=== PATIENT | male | born 1950 | race Caucasian/White ===

== ENCOUNTER → 2017-12-29 08:59 | Outpatient (CLI) | payer MEDICARE, SELFPAY ==
[2017-12-29 10:06] LABS: Hematocrit 45.7 % (40-54); Hemoglobin 14.9 g/dl (13.0-16.5); Mean Corp Hgb Conc 32.6 g/gl (32-36); Mean Corpuscular Hgb 30.8 pg (27.0-32.0); Mean Corpuscular Volume 94.6 fL (80-94); Mean Platelet Vol. 10.3 fl (6.2-12.0); Platelet Count 174 K/mm3 (150-450); RBC Distribution Width CV 12.9 % (11.6-14.6); RBC Distribution Width SD 44.6 fl (35.1-43.9); Red Blood Count 4.83 M/mm3 (4.6-6.2); Scan Indicated on CBC? Y/N NO; White Blood Count 7.2 K/mm3 (4.4-11.0)
[2017-12-29 10:35] LABS: ALB/GLOB Ratio 0.7 RATIO (0.9-2.4); AST(SGOT) 21 U/L (15-37); Alanine Aminotransfer ALT/SGPT 24 U/L (16-61); Albumin, Serum 3.7 g/dL (3.2-5.0); Alkaline Phosphatase 91 U/L (45-117); Anion Gap 6 (5-15); BUN 11 mg/dL (7-18); BUN/Creat Ratio 13.3 RATIO (10-20); Calcium,Total 9.9 mg/dL (8.5-10.1); Chloride 92 mmol/L (98-107); Cholesterol 187 mg/dL (200); Creatinine, Serum 0.82 mg/dL (0.70-1.30); EST Glomerular Filtration Rate 99 mL/min (>60); Est Glom Filt Rate - Afr Amer 120 mL/min (>60); Globulin 5.3 g/dL (2.2-4.2); Glucose 175 mg/dL (74-106); High Density Lipoprotein 71 mg/dL; Potassium 4.3 mmol/L (3.5-5.1); Sodium Level 138 mmol/L (136-145); Thyroid Stim Hormone (TSH) 1.16 uIU/mL (0.358-3.74); Triglycerides 109 mg/dL; Very Low Density Lipoprotein 22 mg/dL (5-40)
== END ==
PROVIDERS: Family Provider Family Medicine; PCP Family Medicine; Visit Provider Family Medicine
DX: E11.9 Type 2 diabetes mellitus without complications (principal); J44.9 Chronic obstructive pulmonary disease, unspecified
CPT/HCPCS: 36415; 80053; 80061; 84403; 84443; 85027

== ENCOUNTER → 2018-06-01 07:26 | Outpatient (CLI) | payer MEDICARE, SELFPAY ==
[2018-03-12 06:39] VITALS: BMI 52.5
--- NOTE | 2018-06-03 11:13 | PFT ---
INTRODUCTION: The patient is a 67-year-old male that presents for pulmonary function testing secondary to a diagnosis of COPD. Respiratory therapy reports good patient effort. Bronchodilators were used during testing. INTERPRETATION: Forced expiration spirometry demonstrates the presence of a very severe large airways obstructive ventilatory defect. There was no significant response to aerosolized bronchodilators, based upon strict ATS criteria. Spirograms are of good quality and do not plateau indicating slow emptying of the lungs. Body plethysmography was performed and reveals an elevated RV to 171/min predicted, indicative of underlying air trapping. Diffusing capacity by single breath CO is moderately reduced at 50% of predicted. IMPRESSION: These pulmonary function studies demonstrate the presence of an irreversible very severe large airways obstructive ventilatory defect with associated air trapping and reduction in diffusing capacity.
== END ==
PROVIDERS: Family Provider Family Medicine; PCP Family Medicine; Referring Provider Nurse Practitioner Acute Care; Visit Provider Nurse Practitioner Acute Care
DX: J44.9 Chronic obstructive pulmonary disease, unspecified (principal)
CPT/HCPCS: 94060; 94726; 94729

== ENCOUNTER → 2018-07-16 09:04 | Outpatient (CLI) | payer MEDICARE, SELFPAY ==
[2018-03-12 06:39] VITALS: BMI 52.5
[2018-07-16 10:15] LABS: Absolute Lymphocyte Count 1.92 X10^3/ul (0.83-4.51); Absolute Neutrophil Count 6.8 X10^3/uL (2.0-7.7); Basophil# 0.06 X10^3/uL; Basophil% 0.6 % (0-1); Eosinophil# 0.27 X10^3/uL; Eosinophils% 2.8 % (0-5); Hematocrit 44.5 % (40-54); Hemoglobin 14.7 g/dl (13.0-16.5); Lymphocyte # 1.92 X10^3/ul (4.0); Lymphocyte % 19.7 % (19-41); Mean Corpuscular Hgb 31.2 pg (27.0-32.0); Mean Corpuscular Volume 94.5 fL (80-94); Mean Platelet Vol. 10.6 fl (6.2-12.0); Monocyte# 0.64 X10^3/uL; Monocyte% 6.6 % (0-10); Neutrophil # 6.84 X10^3/uL (2.7-7.7); Platelet Count 211 K/mm3 (150-450); RBC Distribution Width CV 12.8 % (11.6-14.6); RBC Distribution Width SD 44.3 fl (35.1-43.9); Red Blood Count 4.71 M/mm3 (4.6-6.2); White Blood Count 9.8 K/mm3 (4.4-11.0)
[2018-07-16 10:16] LABS: POSITIVE COUNT NO; POSITIVE DIFFERENTIAL NO; POSITIVE MORPHOLOGY NO
[2018-07-16 11:48] LABS: BUN 10 mg/dL (7-18); Creatinine, Serum 0.84 mg/dL (0.70-1.30); Glucose 222 mg/dL (74-106)
[2018-07-16 11:49] LABS: ALB/GLOB Ratio 0.9 RATIO (0.9-2.4); AST(SGOT) 19 U/L (15-37); Alanine Aminotransfer ALT/SGPT 25 U/L (16-61); Alkaline Phosphatase 104 U/L (45-117); Anion Gap 8 (5-15); Calcium,Total 9.9 mg/dL (8.5-10.1); Chloride 94 mmol/L (98-107); EST Glomerular Filtration Rate 97 mL/min (>60); Est Glom Filt Rate - Afr Amer 118 mL/min (>60); Globulin 4.5 g/dL (2.2-4.2); Protein, Total 8.5 g/dL (6.4-8.2); Sodium Level 139 mmol/L (136-145)
== END ==
PROVIDERS: Family Provider Family Medicine; PCP Family Medicine; Visit Provider Family Medicine
DX: J44.9 Chronic obstructive pulmonary disease, unspecified (principal)
CPT/HCPCS: 36415; 80053; 85025

== ENCOUNTER → 2019-01-21 | Outpatient (CLI) | payer MEDICARE, MEDICAID, SELFPAY ==
[2018-03-12 06:39] VITALS: BMI 52.5
[2019-01-21 12:22] LABS: Hematocrit 49.3 % (40-54); Hemoglobin 15.4 g/dL (13.0-16.5); Mean Corp Hgb Conc 31.2 g/dL (32-36); Mean Corpuscular Hgb 30.4 pg (27.0-32.0); Mean Corpuscular Volume 97.4 fL (80-94); Mean Platelet Vol. 10.4 fl (6.2-12.0); Platelet Count 185 K/mm3 (150-450); RBC Distribution Width CV 13.1 % (11.6-14.6); RBC Distribution Width SD 46.9 fl (35.1-43.9); Red Blood Count 5.06 M/mm3 (4.6-6.2); White Blood Count 7.2 K/mm3 (4.4-11.0)
[2019-01-21 12:47] LABS: ALB/GLOB Ratio 0.7 RATIO (0.9-2.4); AST(SGOT) 22 U/L (15-37); Alanine Aminotransfer ALT/SGPT 22 U/L (16-61); Albumin, Serum 3.6 g/dL (3.2-5.0); Alkaline Phosphatase 104 U/L (45-117); Anion Gap 4 (5-15); BUN 8 mg/dL (7-18); BUN/Creat Ratio 10.8 RATIO (10-20); Calcium,Total 9.5 mg/dL (8.5-10.1); Chloride 95 mmol/L (98-107); Creatinine, Serum 0.74 mg/dL (0.70-1.30); EST Glomerular Filtration Rate 111 mL/min (>60); Est Glom Filt Rate - Afr Amer 134 mL/min (>60); Globulin 5.2 g/dL (2.2-4.2); Glucose 146 mg/dL (74-106); Potassium 3.8 mmol/L (3.5-5.1); Protein, Total 8.8 g/dL (6.4-8.2); Sodium Level 139 mmol/L (136-145); Thyroid Stim Hormone (TSH) 0.91 uIU/mL (0.358-3.74)
[2019-01-21 13:17] LABS: Hemoglobin A1c 6.7 % (4.2-6.3)
== END | disposition home or self-care (01) ==
LOC: MFPLAB 09:59
PROVIDERS: Family Provider Family Medicine; PCP Family Medicine; Referring Provider Family Medicine; Visit Provider Family Medicine
DX: E11.9 Type 2 diabetes mellitus without complications (principal); J44.9 Chronic obstructive pulmonary disease, unspecified
CPT/HCPCS: 36415; 80053; 83036; 84443; 85027

== ENCOUNTER 2019-02-12 18:37 | Inpatient (IN) | payer MEDICARE, MEDICAID, SELFPAY ==
[2019-02-12] VITALS (19 sets, daily range): BP systolic 106–133; BP diastolic 67–98; PULSE 76–100; RESP 12–26; TEMP 36.4–37.8; O2SAT 79–98; BMI 51.5; BMI 50.3; BMI 50.4
--- NOTE | 2019-02-12 18:58 | EKG12_ITS ---
Test Reason : CP/SOB Blood Pressure : / mmHG Vent. Rate : 095 BPM Atrial Rate : 095 BPM P-R Int : 168 ms QRS Dur : 136 ms QT Int : 384 ms P-R-T Axes : 059 -63 063 degrees QTc Int : 482 ms Normal sinus rhythm Right bundle branch block Left anterior fascicular block Bifascicular block Cannot rule out Inferior infarct , age undetermined Abnormal ECG Confirmed by ANNABEL NICHOSL, KAREN ([id number]), editor farm journal GELACIO DAVIS ([id number]) on 02/16/2019 12:00:43 PM Referred By: June Grant Confirmed By:MEHNAZ JIN MD
--- NOTE | 2019-02-12 18:58 | RAD_ITS ---
STUDY: X-RAY CHEST REASON FOR EXAM: Male, 68 years old. SOB. TECHNIQUE: Portable chest. COMPARISON: 04/26/2017. FINDINGS: The lungs are clear and expanded. There is no demonstrated pleural abnormality. Normal size heart. Normal mediastinum and jasmyn. Normal visualized pulmonary arteries. Normal visualized aortic arch and descending thoracic aorta. Normal visualized thoracic spine. Normal visualized ribs, clavicles, and shoulders. There is no demonstrated abnormality of the visualized soft tissue structures of the upper abdomen. RAD/Chest 1 View (Portable) IMPRESSION: Normal x-ray examination of the chest. Electronically Signed: Nora Moreno MD at 22:13 EDT Tel , Service support ,
--- NOTE | 2019-02-12 19:01 | ED.DCSUM_ITS ---
History of Present Illness Chief Complaint: Shortness of Breath Informant: Patient, Family, Php Consultant Narrative: Patient presents with 2 to 3-day history of progressive shortness of breath and cough. He is on 4 L home oxygen, he got much worse over the past few days. He arrives via EMS on a nonrebreather mask and still in the 80s on pulse ox. He was breathing at 20 a minute. He was placed on noninvasive positive pressure ventilation immediately upon arrival to the emergency department in the somewhat improved. Past Medical History - Allergies and Home Meds Allergies/Adverse Reactions: Allergies codeine Allergy (Intermediate, Verified 02/12/19 18:44) Rash RASH AND VOMITTING Primary Care Physician: Kelvin Yang MD [Primary Care Provider] - Past Medical History: - - Patient has an extensive past medical history which I reviewed in [employer]. Surgical History: no surgical history Lives: With Family Smoking Status: Former smoker - Family History Maternal Family History: Reports: - - Denies any history DM, HTN, HD. Notes he takes care of her with his ex- only secondary to her age, debility. Paternal Family History: Reports: No pertinent history Review of Systems All systems negative except as indicated General: Denies: Fever Cardiovascular: Reports: Chest pain Respiratory: Reports: Dyspnea, Cough, Sputum Gastrointestinal: Denies: Abdominal pain Musculoskeletal: Denies: Myalgias Neurological: Reports: Weakness Hematologic: Denies: Easy bruising Physical Exam Vital Signs/Narrative: Vital Signs Temp Pulse Resp BP Pulse Ox 02/12/19 18:46 100 F H 98 18 106/74 92 02/12/19 18:45 96 16 94 02/12/19 18:38 100 F H 100 24 H 133/81 H 86 General: Obese, - - Patient appears in significant distress. He is on BiPAP machine Head: Normocephalic Eyes: Perrl, EOMI ENT: - - Somewhat dry mucous membranes long encarnacion Neck: Supple Cardiovascular: Regular rate, Regular rhythm Respiratory: - - He is tachypnea, he is got rhonchi and wheezing bilaterally Abdomen: Soft, Nontender Back: Nontender Extremities: No edema Skin: Normal color, No rash Neurological: Alert, Normal Strength, Normal Sensation Diagnostic/Tx/Re-eval - Rhythm Strip Rhythm Strip: Sinus Rhythm Rate: 95 Ectopy: None - EKG Initial EKG Interpretation: Sinus Rhythm, - - Intraventricular conduction delay. Normal NM and QTc intervals. Nonspecific ST changes Interpreted by emergency doctor - Medical Decision Making Patient improved on BiPAP, he is found to have pneumonia on x-ray interpreted by me. Antibiotics were started. He does not have an elevated lactic acid. I will admit him to the hospital he does have respiratory failure requiring noninvasive positive pressure ventilation. He does not meet criteria for endotracheal intubation since he did significantly improve and appears quite well. Disposition admitted in guarded condition - Critical Care Time Critical care time (excluding procedures): 30-74 minutes, Discussing w/Patient &/or Family/Sterile Preparation Technician, Discussing w/Consultants, Performing Direct Patient Care at Bedside ED Disposition - Plan for ED Patient: Diagnosis: Sepsis, Pneumonia Referrals: Kelvin Yang MD [Primary Care Provider] -
[2019-02-12 19:12] LABS: Absolute Lymphocyte Count 1.07 X10^3/uL (0.83-4.51); Absolute Neutrophil Count 6.9 X10^3/uL (2.0-7.7); Basophil# 0.04 X10^3/uL; Basophil% 0.5 % (0-1); Eosinophil# 0.02 X10^3/uL; Eosinophils% 0.2 % (0-5); Hemoglobin 15.2 g/dL (13.0-16.5); Lymphocyte # 1.07 X10^3/ul (4.0); Mean Corp Hgb Conc 29.8 g/dL (32-36); Mean Corpuscular Hgb 30.7 pg (27.0-32.0); Mean Platelet Vol. 9.8 fl (6.2-12.0); Monocyte# 0.16 X10^3/uL; Monocyte% 1.9 % (0-10); NRBC Flagged by Analyzer 0 % (0-5); Neutrophil # 6.91 X10^3/uL (2.7-7.7); Neutrophil % 83.7 % (47-70); Platelet Count 154 K/mm3 (150-450); RBC Distribution Width CV 13.7 % (11.6-14.6); RBC Distribution Width SD 52.6 fl (35.1-43.9); Red Blood Count 4.95 M/mm3 (4.6-6.2); White Blood Count 8.3 K/mm3 (4.4-11.0)
[2019-02-12] MEDS: MethylPREDNISolone 125 MG/2 ML Vial IV (19:13)
[2019-02-12 19:25] LABS: Lactic Acid 1.5 mmol/L (0.4-2.0)
[2019-02-12 19:28] LABS: Partial Thromboplast Time 27.2 Seconds (24.1-36.2)
[2019-02-12 19:38] LABS: ALB/GLOB Ratio 0.6 RATIO (0.9-2.4); AST(SGOT) 22 U/L (15-37); Alanine Aminotransfer ALT/SGPT 21 U/L (16-61); Albumin, Serum 3.4 g/dL (3.2-5.0); Alkaline Phosphatase 100 U/L (45-117); BUN 39 mg/dL (7-18); BUN/Creat Ratio 29.3 RATIO (10-20); Calcium,Total 9.8 mg/dL (8.5-10.1); Chloride 93 mmol/L (98-107); Creatinine, Serum 1.33 mg/dL (0.70-1.30); EST Glomerular Filtration Rate 57 mL/min (>60); Est Glom Filt Rate - Afr Amer 69 mL/min (>60); Estimated Creatinine Clearance 56.62 ml/min; Globulin 5.7 g/dL (2.2-4.2); Glucose 204 mg/dL (74-106); Potassium 4.1 mmol/L (3.5-5.1); Protein, Total 9.1 g/dL (6.4-8.2); Sodium Level 139 mmol/L (136-145)
[2019-02-12 19:46] LABS: Carbon Dioxide > 45.0 mmol/L (21.0-32.0)
--- NOTE | 2019-02-12 19:53 | ED.RN ---
PT CO2 >45. DR. DURANT AWARE.
--- NOTE | 2019-02-12 20:34 | HP.PCM_ITS ---
Problem List (1) Sepsis Status: Acute Qualifiers: Sepsis type: sepsis due to unspecified organism Sepsis acute organ dysfunction status: with acute organ dysfunction Severe sepsis acute organ dysfunction type: acute renal failure Acute renal failure type: unspecified Severe sepsis shock status: without septic shock Qualified Code(s): A41.9 - Sepsis, unspecified organism; R65.20 - Severe sepsis without septic shock; N17.9 - Acute kidney failure, unspecified (2) Pneumonia Status: Acute Qualifiers: Pneumonia type: due to unspecified organism Laterality: bilateral Lung location: lower lobe of lung Qualified Code(s): J18.1 - Lobar pneumonia, unspecified organism (3) Acute on chronic respiratory failure Status: Acute Qualifiers: Respiratory failure complication: hypoxia and hypercapnia Qualified Code(s): J96.21 - Acute and chronic respiratory failure with hypoxia; J96.22 - Acute and chronic respiratory failure with hypercapnia (4) Acute exacerbation of chronic obstructive airways disease Status: Acute (5) JOSEFA (acute kidney injury) Status: Acute (6) Benign essential HTN Status: Chronic (7) DM2 (diabetes mellitus, type 2) Status: Chronic Qualifiers: Diabetes mellitus terminal computer operator insulin use: without correction use Diabetes mellitus complication status: with other specified complication Qualified Code(s): E11.69 - Type 2 diabetes mellitus with other specified complication (8) Morbid obesity Status: Chronic (9) LATRICIA (obstructive sleep apnea) Status: Chronic (10) Chronic hepatitis Status: Chronic Comment: Hepatitis C, following w/ Dr. Lagos. (11) History of tobacco use Status: Chronic (12) Anxiety Status: Chronic (13) History of stroke Status: Chronic History of Present Illness Date of Admission: 02/12/19 Chief Complaint: Dyspnea, cough, wheezing The patient is a 68 y/o M w/ PMHx: Chronic COPD w/ Chronic Hypoxic Respiratory Failure, Morbid Obesity, LATRICIA, Diabetes mellitus type II, Hx CVA, HTN, HLD, Anxiety and Depression who presents to the [facility] on 02/12/19 with history of ongoing dyspnea, productive cough, congestion ongoing x 3 days with subjective fever and chills as well as several ill contacts with similar presentation. He does use home oxygen and states this is not seemed enough, increasing as well as no improvement with aerosol home regimen. Upon presentation patient with incr eased work of breathing, accessory muscle usage, pursed lip breathing and therefore was transitioned to BiPAP quickly. Work-up in the ED included T 100.1, heart rate 89, BP 123/71, respiratory rate 24, 86% on 6 L, transition to BiPAP, CBC with WBC 8.3, hemoglobin 15.2, platelets 154 with mild left shift, unremarkable coags, CMP with chloride 93, carbon dioxide greater than 45, BUN/creatinine 39/1.33, glucose 204, lactic acid 1.5, chest x-ray with BL PNA, EKG with sinus rhythm with nonspecific ST T wave changes with no acute evidence of ischemia. In the ED patient administered IV vancomycin, Zosyn, Solu-Medrol, DuoNeb and albuterol therapies. Past Medical History Past Medical History (Chronic Problems): Chronic Problems (Last Reviewed 03/13/18 @ 12:21 by Jyoti Díaz POWER HOUSE ENGINEER-C) Chronic respiratory failure (Chronic) Stage 4 very severe COPD by GOLD classification (Chronic) Benign essential HTN (Chronic) DM2 (diabetes mellitus, type 2) (Chronic) Morbid obesity (Chronic) Severe chronic obstructive pulmonary disease (Chronic) LATRICIA (obstructive sleep apnea) (Chronic) Chronic hepatitis (Chronic) Hepatitis C, following w/ Dr. Lagos. History of tobacco use (Chronic) Chronic respiratory failure with hypoxia (Chronic) 4L NC baseline. Anxiety (Chronic) History of stroke (Chronic) Medical History: Medical History (Last Reviewed 03/13/18 @ 12:21 by Jyoti Díaz NP-C) Acute on chronic respiratory failure (Acute) J96.20 Acute exacerbation of chronic obstructive airways disease (Acute) J44.1 Benign essential HTN (Chronic) I10 DM2 (diabetes mellitus, type 2) (Chronic) E11.9 Morbid obesity (Chronic) E66.01 Severe chronic obstructive pulmonary disease (Chronic) J44.9 LATRICIA (obstructive sleep apnea) (Chronic) G47.33 Chronic hepatitis (Chronic) K73.9 Hepatitis C, following estefanía/ Dr. Lagos. History of tobacco use (Chronic) Z87.891 Chronic respiratory failure with hypoxia (Chronic) J96.11 4L NC baseline. Anxiety (Chronic) F41.9 History of stroke (Chronic) Z86.73 Allergies codeine Allergy (Intermediate, Verified 02/12/19 18:44) Rash RASH AND VOMITTING Home Medications: Ambulatory Orders Medication Instructions Recorded Simvastatin [Zocor] 20 mg PO QHS 04/24/17 Diazepam [Valium] 2 mg PO TID PRN #0 04/29/17 Ipratropium/Albuterol Sulfate 3 ml INHALATION Q4H.RT #60 04/29/17 [Duoneb] glimepiride 4 mg tablet 4 mg PO QAM 03/12/18 metformin 500 mg tablet 500 mg PO BID tab 03/12/18 budesonide-formoterol HFA 160 2 puff INHALATION Q12H #10.2 g 01/05/19 mcg-4.5 mcg/actuation aerosol inhaler albuterol sulfate HFA 90 2 puff INHALATION Q4H PRN #18 g 01/25/19 mcg/actuation aerosol inhaler Dulaglutide [Trulicity] 0.5 ml SQ FR 02/12/19 Lisinopril/Hydrochlorothiazide 1 tab PO DAILY 02/12/19 [Lisinopril-Hctz 20-12.5 mg Tab] Meloxicam [Mobic] 15 mg PO DAILY 02/12/19 Surgical History: tonsillectomy Psychiatric History: Anxiety, Depression Lives: With Family Smoking Status: Former smoker - Patient quit cigarette tobacco usage nearing 3 years prior with prior to this 2 pack/day cigarette tobacco use. 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 Drugs: None - *Family History Maternal History Items: Cancer, Diabetes, Heart Disease Paternal History Items: Cancer, COPD Review of Systems Constitutional: Reports: Anorexia, Chills, Fever, Malaise, Weakness, Fatigue. Denies: Weight Change HEENT: Denies: Head Aches, Sinus Congestion, Sinus Drainage Cardiovascular: Denies: Chest Pain, Palpitations Respiratory: Reports: Cough, Shortness of Breath, Shortness of breath at rest, Shortness of breath upon exertion, Sputum production, Wheezing Gastrointestinal: Denies: Abdominal Pain, Nausea, Vomiting Genitourinary: Denies: Dysuria Musculoskeletal: Reports: Joint Pain. Denies: Joint Tenderness Skin: Reports: Skin Changes. Denies: Rash, Wounds Neurological: Denies: Numbness, Tingling, Focal weakness Psychiatric: Reports: Anxiety, Depression. Denies: Homicidal Ideations, Suicidal Ideations Hematologic/ Lymphatic: Reports: Easy Bruising, Easy Bleeding VTE Information - Inpt Only VTE Present on Admission: No VTE Mechan Device Prophylaxis: SCD's VTE Pharm Prophylaxis ordered?: Yes Patient Problems: Active and Suspected Problems (Last Reviewed 03/13/18 @ 12:21 by OLIVER Bashir) Sepsis (Acute) Pneumonia (Acute) JOESFA (acute kidney injury) (Acute) Subjective: Seated upright in ED bed, fatigued appearing, on BiPAP, still increased work of breathing and some accessory muscle usage but patient and family notes he is improved since initial presentation. Objective: Physical Examination: General: awake, alert, oriented x 3 and cooperative, seated upright in the ED bed, BiPAP in place, still ongoing accessory muscle usage and increased respiratory rate; however, improved since initial presentation but disheveled dense foul-smelling. Skin: normal color, turgor, no icterus, cyanosis except chronic venous stasis skin changes to bilateral lower extremities, intertrigo. HEENT: AT/NC, EOMI, PERRLA, dry MM, BiPAP in place, no carotid bruits or JVD noted; however, difficult to assess given thickened neck as well as disheveled.. Lungs: Severely diffusely diminished, BiPAP in place, improved but still ongoing accessory muscle usage increased work of breathing, diffuse expiratory and inspiratory wheezing, rhonchorous coarse bilateral mid to bases. Heart: Regular rate and rhythm; no gallop, rub audible. Abdomen: soft, orbitally obese, NTTP, ND, normal BS unable to discern HSM secon nakul to morbidly obese habitus. Extremities: no cyanosis, + clubbing, no marketed edema. Neurological: patient awake, alert, oriented x 3; cognitive function intact; pupils equally reactive to light and accomodation; cranial nerves II-XII grossly normal, moving all 4 extremities, no focal deficits, strength severely global decrease secondary to acute presentation. Psychiatric: affect appears fatigued, no acute evidence of depressive or anxiety feelings. - Physical Exam Vital Signs Temp Pulse Resp BP Pulse Ox 97.8 F 85 21 H 114/98 H 93 02/12/19 20:00 02/12/19 20:00 02/12/19 20:00 02/12/19 20:00 02/12/19 20:00 Oxygen Flow Rate (L/min) 6 Oxygen Delivery Method Bi-pap Weight: 369 lb 7.916 oz Body Mass Index (BMI) 51.5 Laboratory Tests Past 24 Hrs 02/12/19 02/12/19 02/12/19 18:45 18:45 18:45 WBC 8.3 RBC 4.95 Hgb 15.2 Hct 51.0 MCV 103.0 H MCH 30.7 MCHC 29.8 L RDW Std Deviation 52.6 H RDW Coeff of Rea 13.7 Plt Count 154 MPV 9.8 Immature Gran % (Auto) 0.700 Neut % (Auto) 83.7 H Lymph % (Auto) 13.0 L Gaines % (Auto) 1.9 Eos % (Auto) 0.2 Baso % (Auto) 0.5 Absolute Neuts (auto) 6.9 Absolute Lymphs (auto) 1.07 Nucleated RBC % 0 PT 13.0 INR 1.0 APTT 27.2 Sodium 139 Potassium 4.1 Chloride 93 L Carbon Dioxide > 45.0 H* Anion Gap TNP BUN 39 H Creatinine 1.33 H Estim Creat Clear Calc 56.62 Est GFR (MDRD) Af Amer 69 Est GFR (MDRD) Non-Af 57 L BUN/Creatinine Ratio 29.3 H Glucose 204 H Lactic Acid Calcium 9.8 Total Bilirubin 0.70 AST 22 ALT 21 Alkaline Phosphatase 100 Total Protein 9.1 H Albumin 3.4 Globulin 5.7 H Albumin/Globulin Ratio 0.6 L 02/12/19 18:45 WBC RBC Hgb Hct MCV MCH MCHC RDW Std Deviation RDW Coeff of Rea Plt Count MPV Immature Gran % (Auto) Neut % (Auto) Lymph % (Auto) Gaines % (Auto) Eos % (Auto) Baso % (Auto) Absolute Neuts (auto) Absolute Lymphs (auto) Nucleated RBC % PT INR APTT Sodium Potassium Chloride Carbon Dioxide Anion Gap BUN Creatinine Estim Creat Clear Calc Est GFR (MDRD) Af Amer Est GFR (MDRD) Non-Af BUN/Creatinine Ratio Glucose Lactic Acid 1.5 Calcium Total Bilirubin AST ALT Alkaline Phosphatase Total Protein Albumin Globulin Albumin/Globulin Ratio Assessment/Plan All Active Problems (Last Reviewed 03/13/18 @ 12:21 by Jyoti Díaz, POWER HOUSE ENGINEER-C) Sepsis (Acute) Pneumonia (Acute) JOSEFA (acute kidney injury) (Acute) Acute on chronic respiratory failure (Acute) Acute exacerbation of chronic obstructive airways disease (Acute) The patient is a 68 y/o M w/ PMHx: Chronic COPD w/ Chronic Hypoxic Respiratory Failure, Morbid Obesity, LATRICIA, Diabetes mellitus type II, Hx CVA, HTN, HLD, Anxiety and Depression who presents to the [facility] on 02/12/19 with history of ongoing dyspnea, productive cough, congestion with wheezing ongoing x 3 days. 1. Acute Sepsis secondary to Acute Hypoxic and Hypercapnic Respiratory Failure on Chronic Hypoxic Respiratory Failure secondary to Acute on Chronic COPD exacerbation and CAP: Work-up in the ED included T1 100.1, heart rate 89, BP 123/71, respiratory rate 24, 86% on 6 L, transition to BiPAP, CBC with WBC 8.3, hemoglobin 15.2, platelets 154 with mild left shift, unremarkable coags, CMP with chloride 93, carbon dioxide greater than 45, BUN/creatinine 39/1.33, glucose 204, lactic acid 1.5, chest x-ray with BL PNA, EKG with sinus rhythm with nonspecific ST T wave changes with no acute evidence of ischemia. ABG obtained in the ED and results with hypoxia as well as hypercapnia, not in [facility] as of yet. Will admit to ICU, maintain on BIPAP with transition to home NC as able, continue ATC duonebs, PRN albuterol, continue IV solumedrol, maintained on IV Zosyn and Vancomycin with pending MRSA screen with de- escalation if appropriate, HOB, IS parameters w/ pending respiratory viral panel, sputum cultures and urine antigens. Bld cx x 2 obtained in the ED. Will consult ICU physician. 2. Acute kidney injury: Secondary to acute presentation #1. Admission BUN/Cr 89/1.33, mild, prior baseline creatinine noted to be 0.6. Will hydrate, hold nephrotoxic medications and repeat chemistry in AM. If no improvement would plan FeNa renal ultrasound assessment. 3. Hypertension: Given mild JOSEFA we will hold patient lisinopril and hydrochlorothiazide, add back once appropriate, PRN hydralazine. 4. Diabetes mellitus type II: Hold oral home regimen, once improved will allow off BiPAP with ADA diet, accu checks w/ ISS. 5. Hyperlipidemia: Continue home statin regimen. 6. Anxiety and depression: We will continue home Valium regimen with BiPAP concurrent usage. 7. Morbid Obesity: Weight loss and lifestyle changes encouraged, nutrition consulted. 8. History CVA: We will maintain on aspirin, statin, holding lisinopril and hydrochlorthiazide given JOSEFA but continue PRN regimen for blood pressure. 9. LATRICIA: BiPAP usage as noted #1. 10. DVT prophylaxis: SCDs, Lovenox. 11. CODE status: Discussed CODE status at length with patient and family present including difference between FULL code, DNR-CCA and DNR-CC status. Following discussions about the differences in these status, requested DNR-CCA, no intubation status secondary severity of underlying lung disease and refusal primarily to be intubated as concerned that he would necessitate follow-up tracheostomy. Advanced Care Planning Face to Face Time: 16 minutes. Code Visit Inpatient E&M: 65812 Init Hosp L3 Procedures: 56982 Advncd Care Plan 30 Min
--- NOTE | 2019-02-12 20:51 | ED.RN ---
dr. johnson aware pt unable to void at this time, cannot lay pt flat to cath will collect when able. pt has no further needs at this time will continue to monitor the pt.
--- NOTE | 2019-02-12 21:10 | ED.RN ---
DR. DURANT NOTIFIED THAT THE PT SIGNED A DNR-CC NO INTUBATION WITH THE HOSPITALIST, SAID IT WAS OK TO TAKE THE PT UP TO ICU WITHOUT THE SECOND ART BLOOD TEST. REPORT WAS CALLED TO [facility] IN THE ICU, PT OK FOR FLOOR.
--- NOTE | 2019-02-12 21:37 | CPS ---
Critical ABG results read to Dr. Hernandez @ 2019.
--- NOTE | 2019-02-12 21:38 | CPS ---
Critical ABG results read to Dr. Hernandez @ 0181.
--- NOTE | 2019-02-12 21:49 | NURSING ---
Attempted to reposition pt and clear extra linens and inspect backside; pt very strongly refused to allow staff to place him supine. Posterior skin assessment deferred until pt is more compliant and with stable respiratory condition.
[2019-02-12 21:53] LABS: Magnesium 2.2 mg/dL (1.6-2.6)
[2019-02-12] MEDS: 0.9% Normal Saline 1,000 ML 125 ML IV (22:05)
[2019-02-12] MEDS: guaiFENesin 1,200 MG Tablet 1200 MG PO (22:08)
[2019-02-12] MEDS: Atorvastatin Calcium 10 MG Tablet PO (22:08)
[2019-02-12] MEDS: Insulin Lispro 100 UNIT/ML INSULN.PEN SC (22:14)
[2019-02-12 22:16] LABS: Bedside Glucose 184 mg/dL (70-110)
--- NOTE | 2019-02-12 22:26 | PCM.RX.CS ---
Consult Pharmacy has been consulted to manage selected antiobiotic: Vancomycin Type of Consult: New start Suspected Infection: Pneumonia Labs: Sodium 139 mmol/L (136-145) 02/12/19 18:45 Potassium 4.1 mmol/L (3.5-5.1) 02/12/19 18:45 Chloride 93 mmol/L (98-107) L 02/12/19 18:45 Carbon Dioxide > 45.0 mmol/L (21.0-32.0) H* 02/12/19 18:45 Anion Gap TNP 02/12/19 18:45 BUN 39 mg/dL (7-18) H 02/12/19 18:45 Creatinine 1.33 mg/dL (0.70-1.30) H 02/12/19 18:45 Est GFR (MDRD) Af Amer 69 mL/min (>60) 02/12/19 18:45 Est GFR (MDRD) Non-Af 57 mL/min (>60) L 02/12/19 18:45 BUN/Creatinine Ratio 29.3 RATIO (10-20) H 02/12/19 18:45 Glucose 204 mg/dL (74-106) H 02/12/19 18:45 Weight used for dosin.8 kg Estimated Creatinine Clearance: 83.2 Goal Trough: 15-20 mcg/mL Pharmacy Plan for Drug Dosing: Pharmacy Service will continue to monitor and adjust dosing as required. Medications Vancomycin HCl 2,000 mg/ (Sodium Chloride) 540 mls @ 250 mls/hr IV Q12H ANG Discontinued Medications Vancomycin HCl 1,500 mg/ (Sodium Chloride) 530 mls @ 250 mls/hr IV X1 ONE (ED DOSE) Stop: 02/12/19 21:07 Last Admin: 02/12/19 22:06 Dose: Infused Documented by: Follow-Up Labs: Trough Vancomycin Labs to be done on [date and time ordered]: 02/14 @ 7897
[2019-02-12 23:13] LABS: Probe Check PASS
[2019-02-12 23:14] LABS: M R Staph aureus DNA By PCR POSITIVE (Negative)
[2019-02-13] VITALS (38 sets, daily range): BP systolic 106–157; BP diastolic 54–102; PULSE 71–95; RESP 12–26; TEMP 36.3–36.9; O2SAT 85–98
--- NOTE | 2019-02-13 02:13 | NURSING ---
Pt given soap and water bath w/staff assist x2. Skin to back is intact, mild redness between buttocks. Abd folds/groin washed,rinsed and dried. All areas very reddened and macerated in small sections. Antifungal powder applied to all. Sheets of Inter-Dry placed under abd folds, in groin folds and a scrotal sling is created. Pt very resistive to all care, pushing hard against staff and calling us motherfuckers. Pt respiratory status not a concern as patient's breathing pattern was not affected by positioning for bath. P.ox maintained >92% through all. Pt also straight cathed for urine sample ordered after procedure explained.
[2019-02-13 02:42] LABS: Bacteria 0 SEEN /hpf (None Seen); Mucous, Urine 0 SEEN /hpf (<or=2+); Red Blood Cells-Urine 0 SEEN /hpf (0-5); Squamous Epithelial Cells - UA 0 SEEN /hpf (0-5)
[2019-02-13 02:44] LABS: Color, Urine Yellow (Yellow); Glucose, Dipstick Normal (Normal); Ketone-Dipstick 5 mg/dl (Negative); Leukocyte Esterase-Dipstick Negative /ul (Negative); Nitrite-Dipstick Negative (Negative); Occult Blood-Urine Negative /ul (Negative); Protein-Dipstick 30 mg/dl (Negative); Specific Gravity, Urine 1.025 (1.002-1.030); Urine Bilirubin Dipstick Negative (Negative); Urine Clarity Clear (Clear); Urine Urobilinogen 1 mg/dl (Normal)
[2019-02-13 02:51] LABS: White Blood Cells 0-5 SEEN /hpf (0-5)
[2019-02-13 02:51] LABS: Absolute Lymphocyte Count 0.58 X10^3/uL (0.83-4.51); Absolute Neutrophil Count 6.7 X10^3/uL (2.0-7.7); Basophil# 0.03 X10^3/uL; Basophil% 0.4 % (0-1); Hematocrit 49.9 % (40-54); Hemoglobin 14.9 g/dL (13.0-16.5); Lymphocyte # 0.58 X10^3/ul (4.0); Lymphocyte % 7.8 % (19-41); Mean Corp Hgb Conc 29.9 g/dL (32-36); Mean Platelet Vol. 10.2 fl (6.2-12.0); Monocyte# 0.05 X10^3/uL; Monocyte% 0.7 % (0-10); NRBC Flagged by Analyzer 0 % (0-5); Neutrophil # 6.67 X10^3/uL (2.7-7.7); Neutrophil % 89.8 % (47-70); POSITIVE DIFFERENTIAL YES; POSITIVE MORPHOLOGY YES; Platelet Count 142 K/mm3 (150-450); RBC Distribution Width CV 13.7 % (11.6-14.6); RBC Distribution Width SD 53.1 fl (35.1-43.9); White Blood Count 7.4 K/mm3 (4.4-11.0)
[2019-02-13 02:52] LABS: Hyaline Cast 0-5 SEEN /lpf (0-5)
[2019-02-13 02:55] LABS: Differential Indicated SCAN CRITERIA MET
[2019-02-13 03:33] LABS: Anion Gap 1 (5-15); BUN 42 mg/dL (7-18); BUN/Creat Ratio 31.1 RATIO (10-20); Calcium,Total 9.4 mg/dL (8.5-10.1); Chloride 93 mmol/L (98-107); Creatinine, Serum 1.35 mg/dL (0.70-1.30); EST Glomerular Filtration Rate 56 mL/min (>60); Est Glom Filt Rate - Afr Amer 68 mL/min (>60); Estimated Creatinine Clearance 55.78 ml/min; Glucose 182 mg/dL (74-106); Potassium 4.2 mmol/L (3.5-5.1); Sodium Level 139 mmol/L (136-145)
[2019-02-13] MEDS: 0.9% Normal Saline 1,000 ML 125 ML IV (05:02)
[2019-02-13] MEDS: Nystatin Powder 15gm Bottle 1 APPLIC TOPICAL ×3 (05:04→22:45)
--- NOTE | 2019-02-13 05:55 | RAD_ITS ---
HISTORY: SOBShort of Breath/DyspneaRAD - Chest ADDITIONAL HISTORY: None provided. COMPARISON: 02/12/2019, 04/24/2017 TECHNIQUE: Frontal chest radiograph. Number of images including paperwork: 2 FINDINGS: LUNGS AND PLEURA: Bibasilar opacities appear grossly similar, possibly chronic changes and/or recurrent infiltrates.. CARDIAC SILHOUETTE: Stably enlarged. MEDIASTINUM AND MAXI: Stable. Hilar prominence appears similar. UPPER ABDOMEN: Unremarkable. SKELETON AND SOFT TISSUES: No acute findings. OTHER DEVICES AND HARDWARE: None. RAD/Chest 1 View (Portable) IMPRESSION: No significant interval change. at 0812 Reported and signed by: Eveline Post MD Electronically Signed: Eveline Post MD at 8:12 EDT Tel , Service support ,
--- NOTE | 2019-02-13 06:08 | CON.PCM_ITS ---
Reason for Consult Date of Consultation: 02/13/19 Reason for Consultation: Respiratory failure History of Present Illness: The patient is a 68-year-old male, with a history as outlined below, who presented to the emergency department on February 12 with progressive shortness of breath and cough. The patient is currently followed by Dr. Collin Rodriguez in the pulmonary medicine clinic due to a history of GOLD stage IV obstructive lung disease, chronic hypoxemic respiratory failure with a baseline 4 L/min requirement and obstructive sleep apnea. The patient was last seen in the pulmonary medicine office in March 2018. The patient was supposed to follow- up, but failed to do so. Pulmonary function testing last completed in June 2018 revealed evidence of an irreversible very severe large airways obstructive ventilatory defect with associated air trapping and reduction in diffusing capacity. On presentation to the emergency department, the patient was noted to be febrile and tachypneic, but was otherwise hemodynamically stable. Due to the presence of hypoxemia, the patient had to be placed on a BiPAP. Laboratory evaluation revealed no evidence of a leukocytosis. Coagulation profile was within normal limits. Chemistry profile was notable for a chronically elevated serum bicarbonate along with a creatinine of 1.3. Lactate was within normal limits. MRSA screen was positive. Initial plain film chest x-ray revealed no acute infiltrative process. The patient was subsequently started on aerosol treatments, antibiotics and steroids. He was admitted to the medical intensive care unit for further management. The patient reported to me that he did not follow-up in the pulmonary medicine clinic after his last office visit due to financial constraints. While Symbicort is listed on his outpatient medication list, I do suspect that he is noncompliant with his home inhaler regimen, again due to financial constraints. He states that he was recently approved for Medicaid. He does apparently also utilize a trilogy noninvasive ventilator in his home environment. Past Medical History Past Medical History (Chronic Problems): Chronic Problems (Last Reviewed 03/13/18 @ 12:21 by Jyoti Díaz NP-C) Chronic respiratory failure (Chronic) Stage 4 very severe COPD by GOLD classification (Chronic) Benign essential HTN (Chronic) DM2 (diabetes mellitus, type 2) (Chronic) Morbid obesity (Chronic) Severe chronic obstructive pulmonary disease (Chronic) LATRICIA (obstructive sleep apnea) (Chronic) Chronic hepatitis (Chronic) Hepatitis C, following w/ Dr. Lagos. History of tobacco use (Chronic) Chronic respiratory failure with hypoxia (Chronic) 4L NC baseline. Anxiety (Chronic) History of stroke (Chronic) Medical History: Medical History (Last Reviewed 03/13/18 @ 12:21 by Jyoti Díaz NP-C) Acute on chronic respiratory failure (Acute) J96.20 Acute exacerbation of chronic obstructive airways disease (Acute) J44.1 Benign essential HTN (Chronic) I10 DM2 (diabetes mellitus, type 2) (Chronic) E11.9 Morbid obesity (Chronic) E66.01 Severe chronic obstructive pulmonary disease (Chronic) J44.9 LATRICIA (obstructive sleep apnea) (Chronic) G47.33 Chronic hepatitis (Chronic) K73.9 Hepatitis C, following w/ Dr. Lagos. History of tobacco use (Chronic) Z87.891 Chronic respiratory failure with hypoxia (Chronic) J96.11 4L NC baseline. Anxiety (Chronic) F41.9 History of stroke (Chronic) Z86.73 Allergies codeine Allergy (Intermediate, Verified 02/12/19 18:44) Rash RASH AND VOMITTING Home Medications: Ambulatory Orders Medication Instructions Recorded Simvastatin [Zocor] 20 mg PO QHS 04/24/17 Diazepam [Valium] 2 mg PO TID PRN #0 04/29/17 Ipratropium/Albuterol Sulfate 3 ml INHALATION Q4H.RT #60 04/29/17 [Duoneb] glimepiride 4 mg tablet 4 mg PO QAM 03/12/18 metformin 500 mg tablet 500 mg PO BID tab 03/12/18 budesonide-formoterol HFA 160 2 puff INHALATION Q12H #10.2 g 01/05/19 mcg-4.5 mcg/actuation aerosol inhaler albuterol sulfate HFA 90 2 puff INHALATION Q4H PRN #18 g 01/25/19 mcg/actuation aerosol inhaler Dulaglutide [Trulicity] 0.5 ml SQ FR 02/12/19 Lisinopril/Hydrochlorothiazide 1 tab PO DAILY 02/12/19 [Lisinopril-Hctz 20-12.5 mg Tab] Meloxicam [Mobic] 15 mg PO DAILY 02/12/19 Surgical History: tonsillectomy Psychiatric History: Anxiety, Depression Lives: With Family Smoking Status: Former smoker Tobacco Use: Non-smoker 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 Drugs: None - *Family History Maternal History Items: Cancer, Diabetes, Heart Disease Paternal History Items: Cancer, COPD Review of Systems Constitutional: Denies: Chills, Fever Eyes: Denies: Blurred vision, Double vision HEENT: Denies: Head Aches, Sinus Congestion, Sinus Drainage Cardiovascular: Denies: Chest Pain, Palpitations Respiratory: Reports: Cough, Shortness of Breath Gastrointestinal: Denies: Abdominal Pain, Nausea, Vomiting Genitourinary: Denies: Dysuria Musculoskeletal: Denies: Joint Pain, Joint Tenderness Skin: Denies: Rash, Wounds Neurological: Denies: Numbness, Tingling, Focal weakness Psychiatric: Reports: Anxiety Hematologic/ Lymphatic: Denies: Easy Bruising, Easy Bleeding Patient Problems: Active and Suspected Problems (Last Reviewed 03/13/18 @ 12:21 by Jyoti Díaz NP-C) Sepsis (Acute) Pneumonia (Acute) JOSEFA (acute kidney injury) (Acute) Objective: The patient's most recent lab work, culture data and imaging studies have all been personally reviewed. Strep and urine Legionella antigens were both negative. Blood, urine and sputum cultures are pending. Respiratory viral panel is pending. - Physical Exam General: Confused, - - A bit unkempt in appearance. No acute distress. HEENT: Atraumatic, PERRLA, Normocephalic Oral: No Gingival or Mucosal Lesions/ Ulcerations, - - Poor generalized dentition Neck: Supple, No Nodes, Trachea Midline Lungs: No rhonchi, No rales, Diminished, Wheezes Cardiovascular: Regular rate, Regular Rhythm, Normal S1, Normal S2, No murmurs Abdomen: Bowel Sounds Present, Soft, Non Tender, Obese Extremities: No clubbing, No cyanosis, Edema Skin: - - Venous stasis changes to lower extremities Musculoskeletal: No Muscle Wasting Lymphatic: No Cervical, Supraclavicular, or Inguinal Adenopathy Neurological: Cranial nerves II-XII grossly intact Psych/Mental Status: Normal Affect, Appropriate Vital Signs Temp Pulse Resp BP Pulse Ox 98.1 F 74 20 H 134/75 H 95 02/13/19 00:00 02/13/19 04:00 02/13/19 04:00 02/13/19 03:00 02/13/19 04:00 Oxygen Flow Rate (L/min) 6 Oxygen Delivery Method Bi-pap Weight: 368 lb 13.334 oz Body Mass Index (BMI) 50.3 Intake and Output for Last 24 Hours 02/11/19 02/12/19 02/13/19 23:59 23:59 23:59 Intake Total 630 / 630 868.75 / 868.75 Output Total 590 / 590 Balance 630 / 630 278.75 / 278.75 Microbiology Past 72 Hours 02/13/19 02:15 Legionella Antigen - Final Urine Catheter - Catheter 02/13/19 02:15 Streptococcus pneumoniae Antigen (M - Final Urine Catheter - Catheter Laboratory Tests Past 24 Hrs 02/12/19 02/12/19 02/12/19 18:45 18:45 18:45 WBC 8.3 RBC 4.95 Hgb 15.2 Hct 51.0 MCV 103.0 H MCH 30.7 MCHC 29.8 L RDW Std Deviation 52.6 H RDW Coeff of Rea 13.7 Plt Count 154 MPV 9.8 Immature Gran % (Auto) 0.700 Neut % (Auto) 83.7 H Lymph % (Auto) 13.0 L [place] % (Auto) 1.9 Eos % (Auto) 0.2 Baso % (Auto) 0.5 Absolute Neuts (auto) 6.9 Absolute Lymphs (auto) 1.07 Nucleated RBC % 0 PT 13.0 INR 1.0 APTT 27.2 Sodium 139 Potassium 4.1 Chloride 93 L Carbon Dioxide > 45.0 H* Anion Gap TNP BUN 39 H Creatinine 1.33 H Estim Creat Clear Calc 56.62 Est GFR (MDRD) Af Amer 69 Est GFR (MDRD) Non-Af 57 L BUN/Creatinine Ratio 29.3 H Glucose 204 H Lactic Acid Calcium 9.8 Magnesium Total Bilirubin 0.70 AST 22 ALT 21 Alkaline Phosphatase 100 Total Protein 9.1 H Albumin 3.4 Globulin 5.7 H Albumin/Globulin Ratio 0.6 L Urine Color Urine Clarity Urine pH Ur Specific [place] Urine Protein Urine Glucose (UA) Urine Ketones Urine Occult Blood Urine Nitrite Urine Bilirubin Urine Urobilinogen Ur Leukocyte Esterase Urine RBC Urine WBC Ur Squamous Epith Cells Urine Bacteria Hyaline Casts Urine Mucus MRSA (PCR) 02/12/19 02/12/19 02/12/19 18:45 19:50 21:45 WBC RBC Hgb Hct MCV MCH MCHC RDW Std Deviation RDW Coeff of Rea Plt Count MPV Immature Gran % (Auto) Neut % (Auto) Lymph % (Auto) [place] % (Auto) Eos % (Auto) Baso % (Auto) Absolute Neuts (auto) Absolute Lymphs (auto) Nucleated RBC % PT INR APTT Sodium Potassium Chloride Carbon Dioxide Anion Gap BUN Creatinine Estim Creat Clear Calc Est GFR (MDRD) Af Amer Est GFR (MDRD) Non-Af BUN/Creatinine Ratio Glucose Lactic Acid 1.5 Calcium Magnesium 2.2 Total Bilirubin AST ALT Alkaline Phosphatase Total Protein Albumin Globulin Albumin/Globulin Ratio Urine Color Urine Clarity Urine pH Ur Specific [place] Urine Protein Urine Glucose (UA) Urine Ketones Urine Occult Blood Urine Nitrite Urine Bilirubin Urine Urobilinogen Ur Leukocyte Esterase Urine RBC Urine WBC Ur Squamous Epith Cells Urine Bacteria Hyaline Casts Urine Mucus MRSA (PCR) POSITIVE H 02/13/19 02/13/19 02/13/19 02:15 02:45 02:45 WBC 7.4 RBC 4.80 Hgb 14.9 Hct 49.9 MCV 104.0 H MCH 31.0 MCHC 29.9 L RDW Std Deviation 53.1 H RDW Coeff of Rea 13.7 Plt Count 142 L MPV 10.2 Immature Gran % (Auto) 1.300 H Neut % (Auto) 89.8 H Lymph % (Auto) 7.8 L [place] % (Auto) 0.7 Eos % (Auto) 0.0 Baso % (Auto) 0.4 Absolute Neuts (auto) 6.7 Absolute Lymphs (auto) 0.58 L Nucleated RBC % 0 PT INR APTT Sodium 139 Potassium 4.2 Chloride 93 L Carbon Dioxide 45.0 H Anion Gap 1 L BUN 42 H Creatinine 1.35 H Estim Creat Clear Calc 55.78 Est GFR (MDRD) Af Amer 68 Est GFR (MDRD) Non-Af 56 L BUN/Creatinine Ratio 31.1 H Glucose 182 H Lactic Acid Calcium 9.4 Magnesium Total Bilirubin AST ALT Alkaline Phosphatase Total Protein Albumin Globulin Albumin/Globulin Ratio Urine Color Yellow Urine Clarity Clear Urine pH 5.0 Ur Specific [place] 1.025 Urine Protein 30 H Urine Glucose (UA) Normal Urine Ketones 5 H Urine Occult Blood Negative Urine Nitrite Negative Urine Bilirubin Negative Urine Urobilinogen 1 H Ur Leukocyte Esterase Negative Urine RBC 0 SEEN Urine WBC 0-5 SEEN Ur Squamous Epith Cells 0 SEEN Urine Bacteria 0 SEEN Hyaline Casts 0-5 SEEN Urine Mucus 0 SEEN MRSA (PCR) POC Glucose 02/12/19 22:11 POC Glucose 184 H Clinical Impression(s) from Imaging Studies Chest X-Ray 02/12/19 18:58 IMPRESSION: Normal x-ray examination of the chest. Electronically Signed: Nora Moreno MD at 22:13 EDT Tel , Service support , Assessment/Plan Active and Suspected Problems (Last Reviewed 03/13/18 @ 12:21 by Jyoti Díaz NP-Davino) Sepsis (Acute) Pneumonia (Acute) JOSEFA (acute kidney injury) (Acute) RECOMMENDATIONS: 1. Continue scheduled bronchodilators, steroids and antibiotics, pending infectious work-up. 2. Transition from BiPAP to AVAPS. Wean from noninvasive positive pressure ventilatory support as tolerated. 3. Wean supplemental oxygen to maintain saturations 88 to 92%. 4. Hold benzodiazepines and discontinue melatonin. 5. Continue appropriate ICU prophylaxis. 6. Ideally, the patient should be restarted on a triple therapy inhaler regimen at the time of discharge. He will require close outpatient pulmonary follow- up. IMPRESSIONS: 1. Acute on chronic combined respiratory failure likely secondary to end COPD with exacerbation The patient has known end-stage COPD along with chronic combined respiratory failure. He has been lost to outpatient pulmonary follow-up since March 2018, due to self-reported financial constraints. The patient was placed on BiPAP on presentation to the hospital. While he has responded partially to the use of BiPAP, given his chronic CO2 retention, I would recommend that we transition him to AVAPS. Orders were placed accordingly. Continue empiric antimicrobial therapy, pending infectious work-up. Continue scheduled bronchodilators and IV steroids. Wean oxygen to maintain saturations 88 to 92%. I do strongly suspect that the patient has been noncompliant with the use of his outpatient inhaler regimen, again due to financial constraints. 2. Tobacco dependency in remission/obesity/obstructive sleep apnea/diabetes mellitus/hypertension/hyperlipidemia Complicates care, management, recovery and prognosis. Physical therapy to evaluate the patient. Home medications can be restarted from my perspective. Continue sliding scale insulin coverage. TIME: 38 minutes of critical care time, independent of procedures, was spent addressing the patient's acute on chronic combined respiratory failure, COPD with exacerbation, outpatient noncompliance and follow-up, review of all data and collaboration with the care team. ([id number]) Code Visit 9xxxx: [id number] Critical care first hour
[2019-02-13] MEDS: Ipratropium/Albuterol Sulfate 3 ML AMPUL.NEB INHALATION ×4 (06:35→18:45)
[2019-02-13 07:11] LABS: Allen Test POS; Base Excess 22 mmol/L (-2 to +2); Bicarbonate 49.3 mmol/L (22-26); Blood Gas Specimen Type ART; EPAP 8; FI02 50; IPAP 18; PO2 74 mmHG (75-100); RR 16; SITE R Radial; SO2 89 % (95-99); Time Given 2120; Total Carbon Dioxide > 50 mmol/L; pCO2 118.2 mmHg (35-45); pH 7.23 (7.35-7.45)
[2019-02-13 07:36] LABS: Allen Test POS; Base Excess 23 mmol/L (-2 to +2); Bicarbonate 50.7 mmol/L (22-26); Blood Gas Specimen Type ART; EPAP 6; FI02 50; IPAP 12; PO2 73 mmHG (75-100); RR 12; SITE R Radial; SO2 89 % (95-99); Time Given 2020; Total Carbon Dioxide > 50 mmol/L; pCO2 123.5 mmHg (35-45); pH 7.22 (7.35-7.45)
--- NOTE | 2019-02-13 07:50 | PN_ITS ---
Patient Problems: Active and Suspected Problems (Last Reviewed 03/13/18 @ 12:21 by OLIVER Bashir) Sepsis (Acute) Pneumonia (Acute) JOSEFA (acute kidney injury) (Acute) Subjective: Day #2 Zosyn and Vancomycin The patient is a 68-year-old male with a past medical history of end-stage COPD (GOLD class 4) with chronic hypoxic respiratory failure, super obesity, former tobacco dependence, obstructive sleep apnea, diabetes mellitus type 2, history of CVA, hypertension, hyperlipidemia and anxiety/depression who presented to the emergency department at [facility] on 02/12/2019 complaining of shortness of breath, productive cough and subjective fever/chills that had been occurring for the preceding 3 days. Vital signs in the emergency department were temperature 100 ?F, blood pressure 133/81, respiratory rate 24 and he was 86% saturated on a 6 L nasal cannula. White blood cell count was 8.3 with a left shift. Hemoglobin was 15.2 with an MCV of 103. Platelets were within normal limits. PT and PTT were normal. An ABG done on BiPAP with settings of 12/6 showed a pH of 7.22, PCO2 of 123 and a PO2 of 73. BMP showed a serum bicarb greater than 45. The BUN was 39 and the creatinine was 1.33, up from 0.74 on 01/21/2019. LFTs were unremarkable. UA had 0-5 WBCs and no RBCs. Chest X ray per my review shows possible infiltrate versus atelectasis in the right base and infiltrate in the left perihilar area. He was admitted to the intensive care unit with a diagnosis of sepsis due to suspected CAP and started on Zosyn and Vancomycin. The MRSA nasal screen was positive for MRSA. He was placed on BIPAP for acute on chronic combined respiratory failure. All events of the past 24 hours of been reviewed. He is afebrile today with a temp of 98.3. Blood pressure and heart rate have been stable. Pulse ox is 95% on BiPAP with a 50% FiO2. Fluid balance is +1050 since admission. All lab was personally reviewed. The white blood cell count remains normal at 7.4 with a left shift. Hemoglobin is 14.9 today and platelets are mildly decreased at 142,000. BMP is remarkable for a serum bicarb of 45 and a BUN of 42 with a creatinine of 1.35. Streptococcal and Legionella antigens in the urine were negative. Sputum Gram stain and culture are pending. Respiratory panel is pending. Can not remember what inhalers he is taking at home - likely because he has not followed up with pulmonary and is not currently using any inhalers. He tells me he is compliant with CPAP. Continues to c/o SOB, even at rest. Cough is productive of white sputum per pt. Denies smoking. Has never had an ECHO at this institution. EKG shows a bifascicular block with left anterior hemiblock and right bundle b ranch block. There are QS waves in lead III and lead aVF possibly secondary to old inferior wall myocardial infarction. He denies any chest pain at this time. He takes Valium 2 mg TID - Physical Exam General: Well developed, Well nourished, - - he is awake. Speech is somewhat slurred and he mumbles so he is difficult to understand. Appears to be SOB. He is lying in bed at about 60 to 75 degrees. HEENT: Atraumatic, Normocephalic, - - The eyelids are crusty and he has some conjunctival injection and purulent appearing DC from the eyes Oral: Dry Mucosa Neck: No Nodes, Trachea Midline Lungs: Diminished, Tachypneic, Wheezes, - - + conversational dyspnea with no accessory muscle use at this time while at rest Abdomen: Bowel Sounds Present, Distended - and mildly tympanic, Obese, - - no guarding with palpation Extremities: No cyanosis, Edema - but there is also wrinkling of the skin over the feet and the distal LE's so I suspect the edema is usually worse and he is actually dry Skin: - - stasis dermatitis over the distal LE's and there is purplish discoloration likely due to varicosties and venous HTN Musculoskeletal: No Muscle Wasting Neurological: Cranial nerves II-XII grossly intact, Neuro grossly intact Psych/Mental Status: Flat Affect Vital Signs Temp Pulse Resp BP Pulse Ox 98.3 F 81 22 H 125/75 H 94 02/13/19 04:00 02/13/19 06:35 02/13/19 06:35 02/13/19 06:00 02/13/19 06:32 Oxygen Flow Rate (L/min) 6 Oxygen Delivery Method Bi-pap Weight: 368 lb 13.334 oz Body Mass Index (BMI) 50.3 Intake and Output for Last 24 Hours 02/11/19 02/12/19 02/13/19 23:59 23:59 23:59 Intake Total 630 / 630 1010.42 / 1010.42 Output Total 590 / 590 Balance 630 / 630 420.42 / 420.42 Microbiology Past 72 Hours 02/13/19 02:15 Legionella Antigen - Final Urine Catheter - Catheter 02/13/19 02:15 Streptococcus pneumoniae Antigen (M - Final Urine Catheter - Catheter Laboratory Tests Past 24 Hrs 02/12/19 02/12/19 02/12/19 18:45 18:45 18:45 WBC 8.3 RBC 4.95 Hgb 15.2 Hct 51.0 MCV 103.0 H MCH 30.7 MCHC 29.8 L RDW Std Deviation 52.6 H RDW Coeff of Rea 13.7 Plt Count 154 MPV 9.8 Immature Gran % (Auto) 0.700 Neut % (Auto) 83.7 H Lymph % (Auto) 13.0 L [place] % (Auto) 1.9 Eos % (Auto) 0.2 Baso % (Auto) 0.5 Absolute Neuts (auto) 6.9 Absolute Lymphs (auto) 1.07 Nucleated RBC % 0 PT 13.0 INR 1.0 APTT 27.2 Specimen Type Sample Site pH Bicarbonate Actual POC Total CO2 Base Excess O2 Saturation O2 % ABG pCO2 ABG pO2 Edis Test Respiration Rate O2 Delivery Device EPAP IPAP Blood Gas Notified Whom Blood Gas Notified Time Sodium 139 Potassium 4.1 Chloride 93 L Carbon Dioxide > 45.0 H* Anion Gap TNP BUN 39 H Creatinine 1.33 H Estim Creat Clear Calc 56.62 Est GFR (MDRD) Af Amer 69 Est GFR (MDRD) Non-Af 57 L BUN/Creatinine Ratio 29.3 H Glucose 204 H Lactic Acid Calcium 9.8 Magnesium Total Bilirubin 0.70 AST 22 ALT 21 Alkaline Phosphatase 100 Total Protein 9.1 H Albumin 3.4 Globulin 5.7 H Albumin/Globulin Ratio 0.6 L Urine Color Urine Clarity Urine pH Ur Specific [place] Urine Protein Urine Glucose (UA) Urine Ketones Urine Occult Blood Urine Nitrite Urine Bilirubin Urine Urobilinogen Ur Leukocyte Esterase Urine RBC Urine WBC Ur Squamous Epith Cells Urine Bacteria Hyaline Casts Urine Mucus MRSA (PCR) 02/12/19 02/12/19 02/12/19 18:45 19:50 20:34 WBC RBC Hgb Hct MCV MCH MCHC RDW Std Deviation RDW Coeff of Rea Plt Count MPV Immature Gran % (Auto) Neut % (Auto) Lymph % (Auto) [place] % (Auto) Eos % (Auto) Baso % (Auto) Absolute Neuts (auto) Absolute Lymphs (auto) Nucleated RBC % PT INR APTT Specimen Type ART Sample Site R Radial pH 7.22 L Bicarbonate Actual 50.7 H POC Total CO2 > 50 Base Excess 23 H O2 Saturation 89 L O2 % 50 ABG pCO2 123.5 H* ABG pO2 73 L Edis Test POS Respiration Rate 12 O2 Delivery Device Bi / C PAP EPAP 6 IPAP 12 Blood Gas Notified Whom ED MD Blood Gas Notified Time 2019 Sodium Potassium Chloride Carbon Dioxide Anion Gap BUN Creatinine Estim Creat Clear Calc Est GFR (MDRD) Af Amer Est GFR (MDRD) Non-Af BUN/Creatinine Ratio Glucose Lactic Acid 1.5 Calcium Magnesium 2.2 Total Bilirubin AST ALT Alkaline Phosphatase Total Protein Albumin Globulin Albumin/Globulin Ratio Urine Color Urine Clarity Urine pH Ur Specific [place] Urine Protein Urine Glucose (UA) Urine Ketones Urine Occult Blood Urine Nitrite Urine Bilirubin Urine Urobilinogen Ur Leukocyte Esterase Urine RBC Urine WBC Ur Squamous Epith Cells Urine Bacteria Hyaline Casts Urine Mucus MRSA (PCR) 02/12/19 02/12/19 02/13/19 21:27 21:45 02:15 WBC RBC Hgb Hct MCV MCH MCHC RDW Std Deviation RDW Coeff of Rea Plt Count MPV Immature Gran % (Auto) Neut % (Auto) Lymph % (Auto) [place] % (Auto) Eos % (Auto) Baso % (Auto) Absolute Neuts (auto) Absolute Lymphs (auto) Nucleated RBC % PT INR APTT Specimen Type ART Sample Site R Radial pH 7.23 L Bicarbonate Actual 49.3 H POC Total CO2 > 50 Base Excess 22 H O2 Saturation 89 L O2 % 50 ABG pCO2 118.2 H* ABG pO2 74 L Edis Test POS Respiration Rate 16 O2 Delivery Device Bi / C PAP EPAP 8 IPAP 18 Blood Gas Notified Whom ED Blood Gas Notified Time 2119 Sodium Potassium Chloride Carbon Dioxide Anion Gap BUN Creatinine Estim Creat Clear Calc Est GFR (MDRD) Af Amer Est GFR (MDRD) Non-Af BUN/Creatinine Ratio Glucose Lactic Acid Calcium Magnesium Total Bilirubin AST ALT Alkaline Phosphatase Total Protein Albumin Globulin Albumin/Globulin Ratio Urine Color Yellow Urine Clarity Clear Urine pH 5.0 Ur Specific [place] 1.025 Urine Protein 30 H Urine Glucose (UA) Normal Urine Ketones 5 H Urine Occult Blood Negative Urine Nitrite Negative Urine Bilirubin Negative Urine Urobilinogen 1 H Ur Leukocyte Esterase Negative Urine RBC 0 SEEN Urine WBC 0-5 SEEN Ur Squamous Epith Cells 0 SEEN Urine Bacteria 0 SEEN Hyaline Casts 0-5 SEEN Urine Mucus 0 SEEN MRSA (PCR) POSITIVE H 02/13/19 02/13/19 02:45 02:45 WBC 7.4 RBC 4.80 Hgb 14.9 Hct 49.9 MCV 104.0 H MCH 31.0 MCHC 29.9 L RDW Std Deviation 53.1 H RDW Coeff of Rea 13.7 Plt Count 142 L MPV 10.2 Immature Gran % (Auto) 1.300 H Neut % (Auto) 89.8 H Lymph % (Auto) 7.8 L [place] % (Auto) 0.7 Eos % (Auto) 0.0 Baso % (Auto) 0.4 Absolute Neuts (auto) 6.7 Absolute Lymphs (auto) 0.58 L Nucleated RBC % 0 PT INR APTT Specimen Type Sample Site pH Bicarbonate Actual POC Total CO2 Base Excess O2 Saturation O2 % ABG pCO2 ABG pO2 Edis Test Respiration Rate O2 Delivery Device EPAP IPAP Blood Gas Notified Whom Blood Gas Notified Time Sodium 139 Potassium 4.2 Chloride 93 L Carbon Dioxide 45.0 H Anion Gap 1 L BUN 42 H Creatinine 1.35 H Estim Creat Clear Calc 55.78 Est GFR (MDRD) Af Amer 68 Est GFR (MDRD) Non-Af 56 L BUN/Creatinine Ratio 31.1 H Glucose 182 H Lactic Acid Calcium 9.4 Magnesium Total Bilirubin AST ALT Alkaline Phosphatase Total Protein Albumin Globulin Albumin/Globulin Ratio Urine Color Urine Clarity Urine pH Ur Specific [place] Urine Protein Urine Glucose (UA) Urine Ketones Urine Occult Blood Urine Nitrite Urine Bilirubin Urine Urobilinogen Ur Leukocyte Esterase Urine RBC Urine WBC Ur Squamous Epith Cells Urine Bacteria Hyaline Casts Urine Mucus MRSA (PCR) POC Glucose 02/12/19 22:11 POC Glucose 184 H Medical Necessity - Tobacco Use Smoking Status: Former smoker Tobacco Use: Non-smoker Assessment/Plan All Active Problems (Last Reviewed 03/13/18 @ 12:21 by Jyoti Díaz NP-C) Sepsis (Acute) Pneumonia (Acute) JOSEFA (acute kidney injury) (Acute) Acute on chronic respiratory failure (Acute) Acute exacerbation of chronic obstructive airways disease (Acute) Impressions 1. severe sepsis due to CAP with ARF and acute on chronic respiratory failure. Continue Vanco and Zosyn for now. The nasal swab is positive for MRSA. 2. Acute exacerbation COPD due to PNA 3. Acute on chronic combined respiratory failure due to acute exacerbation of COPD due to CAP-continue aerosolized bronchodilators, guaifenesin, Solu-Medrol and antibiotics. Wears O2 at 4 LPM at home continuously. CO2 at admission 1 23......he is working to breath and is tachypneic even at rest. May need intubated. Will maintain in the ICU today 4. Severe, GOLD class stage IV, COPD 5. LATRICIA - on Trilogy at home 6. Super obesity-on a calorie controlled diet. Weight loss advised. 7. 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 Diabetes mellitus type 2-suspect we will need to increase medication significantly while on high-dose steroids. Continue sliding scale insulin for now but will likely need to add Lantus at some point. 9. Hypertension/hyperlipidemia/anxiety/depression-continue home medications. 10. Abnormal EKG with possible remote inferior wall MN with right bundle branch block and left anterior hemiblock-echo ordered. Suspect pulmonary hypertension. 11. DVT prophylaxis with Henrietta López and enoxaparin. Code Visit Inpatient E&M: 53331 [facility] L3
--- NOTE | 2019-02-13 08:47 | ECHOCS_ITS ---
Reason For Study: Abn EKG Procedure This was a 2D Doppler, Color Flow transthoracic echocardiogram. The study was technically difficult. Contrast injection was performed. Exam performed portable in ICU/CCU. Left Ventricle Normal LV size. The estimated ejection fraction is 65 %. No evidence for diastolic dysfunction. No regional wall motion abnormalities noted. Right Ventricle Not well visualized. Atria Normal LA size. normal size. No doppler evidence for ASD. Mitral Valve Possible mild to moderate mitral stenosis by doppler. Mitral valve is not well visualized by 2d doppler. No mitral valve insufficiency. Tricuspid Valve There is no tricuspid stenosis. Unable to estimate RV systolic pressure due to inadequate jet, pulmonary artery pressure probably normal. Aortic Valve not well visualized. Doppler suggests moderate aortic stenosis. The aortic valve is not well visualized. No aortic valve insufficiency. Pulmonic Valve There is no pulmonic valvular stenosis. No pulmonic valve insufficiency. Great Vessels not seen. Pericardium/Pleural No pericardial effusion. Medication Diluted definity 3ml given slow IV push to enhance endocardial definition. MMode/2D Measurements & Calculations LVIDd: 5.0 cm IVSd: 1.6 cm LVOT diam: 2.1 cm LVIDs: 3.5 cm LVPWd: 1.5 cm FS: 30.5 % LVOT area: 3.4 cm2 Ao root diam: 3.7 cm LAV(MOD-sp2): 62.4 ml LVAd ap4: 25.9 cm2 EDV(MOD-sp4): 72.1 ml EDV(sp4-el): 75.2 ml LVAs ap4: 12.9 cm2 ESV(MOD-sp4): 24.2 ml ESV(sp4-el): 23.6 ml EF(MOD-sp4): 66.4 % EF(sp4-el): 68.6 % SV(MOD-sp4): 47.9 ml SV(sp4-el): 51.6 ml LA dimension(2D): 5.0 cm Time Measurements MV dec time: 0.10 sec Doppler Measurements & Calculations MV E max polo: 134.6 cm/sec Lat Peak E' Polo: 10.6 cm/sec Med Peak E' Polo: 9.2 cm/sec MV A max polo: 130.2 cm/sec E/E' lat: 12.6 E/E' med: 14.6 MV E/A: 1.0 MV V2 max: 160.1 cm/sec MV P1/2t max polo: 145.7 cm/sec Ao V2 max: 352.9 cm/sec MV max P.3 mmHg MV P1/2t: 73.0 msec Ao max P.9 mmHg MV V2 mean: 110.7 cm/sec MV dec slope: 584.8 cm/sec2 Ao V2 mean: 242.3 cm/sec MV mean P.3 mmHg Ao mean P.8 mmHg MV V2 VTI: 47.5 cm MVA(P1/2t): 3.0 cm2 Ao V2 VTI: 66.1 cm MVA(VTI): 2.0 cm2 MEAGHAN(I,D): 1.4 cm2 MEAGHAN(V,D): 1.2 cm2 LV V1 max: 124.0 cm/sec SV(LVOT): 93.4 ml PA V2 max: 58.8 cm/sec LV V1 max P.1 mmHg LV V1 mean P.9 mmHg LV V1 mean: 95.2 cm/sec LV V1 VTI: 27.1 cm Interpretation Summary The study was technically difficult. Diluted definity 3ml given slow IV push to enhance endocardial definition. The estimated ejection fraction is 65 %. No evidence for diastolic dysfunction. Possible mild to moderate mitral stenosis by doppler. Mitral valve is not well visualized by 2d doppler. Doppler suggests moderate aortic stenosis. The aortic valve is not well visualized The study was technically difficult. Ordering Physician: Roya Bains Referring Physician: June Grant Performed By: Lida Marx, BERNADINE, RVT
[2019-02-13 08:56] LABS: Bedside Glucose 171 mg/dL (70-110)
[2019-02-13 09:20] LABS: Erythrocyte Sedimentation Rate 112 mm/hr (0-20)
[2019-02-13 09:29] LABS: Cholesterol 195 mg/dL (200); High Density Lipoprotein 56 mg/dL; Triglycerides 101 mg/dL; Very Low Density Lipoprotein 20 mg/dL (5-40)
[2019-02-13] MEDS: Enoxaparin 40 MG/0.4 ML Syringe SC (09:30)
[2019-02-13] MEDS: guaiFENesin 1,200 MG Tablet 1200 MG PO ×2 (09:30→22:44)
[2019-02-13] MEDS: Insulin Lispro 100 UNIT/ML INSULN.PEN SC ×4 (09:30→22:44)
[2019-02-13 10:05] LABS: Hemoglobin A1c 6.5 % (4.2-6.3)
--- NOTE | 2019-02-13 11:29 | CPS ---
Verbal order from Dr. Hall to place patient on AVAPS: VT 500, and EPAP 10. Patient SPO2 to remain between 88-92%.
[2019-02-13] MEDS: Tobramycin Sulf 0.3% 5ML OPTH.BTL 2 DRP EACH EYE ×3 (12:01→23:00)
[2019-02-13 12:11] LABS: Bedside Glucose 241 mg/dL (70-110)
--- NOTE | 2019-02-13 12:36 | CM.UR ---
Addendum entered by Marcie Sung 02/13/19 16:33: Placed green sheet on chart for w/c from [facility] and [facility]. Faxed order to [facility] for heads up and alerted to unknown dc date at this time. Desiree Sung RN, [facility]. Addendum entered by Marcie Sung 02/13/19 16:18: Discussed DNR with Dr. Bains as order says Full Code. States that she discussed further with him and he does want to be a full code. LVM at this time for Leanne at [facility] alerting to IP admission. Also he had said he has Bipap but per Dr. Bains he actually has a trilogy. Desiree Sung RN, CCM. Original Note: RN CM Assessment Introduced role of RN CM to patient. Patient is alert and able to participate in RN CM Assessment. Care providers, pharmacy, and demographics verified. No family at bedside. Presentation: Worsening sob Admit Dx: ARF, COPD exac Re-Admit: no Barriers/Issues: Motivation, understanding of his MCR/VÍCTOR coverage and cost of things. He didn't follow up d/t cost restraints. PCP: Celia Specialists: Michael Ely Pharmacy: [facility] Insurance: MCR/VÍCTOR Rx Benefit: VÍCTOR LNOK: Joshua Aaron, ex LW/HPOA: none, declined info at this time. Living Arrangements: Lives in slab home with ex-. no steps to get in. ADL?s: Needs assistance with all ADLs. Transportation: Ex-joshua DME: 02, bipap, tub bench, hand held shower, grab bar and walker. States he has an old wheelchair someone gave him. States he never got one of his own. Agreeable for us to arrange for one. States he has mohawk doors so w/c can fit through. 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 DC PLAN: Home with [facility]. 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 OR [phone]. Discussed possible hospital bed d/t need for head to be up pretty high at this time. states he sleeps in a SCVNGR marlon and needs a big bed. doesn't like hospital bed he is currently in so not sure he wants one at this time. He also opted for DNRCC-A with no intubation. Discussed hospice with patient however states he wants to live as long as he can. Instructed on need for compliance and follow up as directed in order for him to live as long and as comfortable as he can. Verb understanding. Desiree Sung RN, CCM.
[2019-02-13] MEDS: 0.9% NaCl Peripheral Flush Adult/Peds IV ×3 (13:35→22:48)
[2019-02-13] MEDS: CHLORHEXIDINE GLUC 2% CLOTH 1 EACH TOWELETTE TOPICAL (17:22)
[2019-02-13 17:25] LABS: Bedside Glucose 153 mg/dL (70-110)
[2019-02-13] MEDS: Atorvastatin Calcium 10 MG Tablet PO (22:44)
[2019-02-13 23:31] LABS: Bedside Glucose 194 mg/dL (70-110)
[2019-02-14] VITALS (25 sets, daily range): BP systolic 114–154; BP diastolic 61–86; PULSE 67–91; RESP 12–31; TEMP 36.6–36.8; O2SAT 88–95
--- NOTE | 2019-02-14 06:04 | PN_ITS ---
Subjective: The patient was seen and examined at the bedside this morning. Events from the last 24 hours have been reviewed. The patient is currently afebrile, hemodynamically stable and maintaining appropriate oxygen saturations on AVAPS with an FiO2 requirement of 40%. Yesterday, the patient was able to maintain oxygen saturations on his baseline 4 L/min, prior to being placed back on AVAPS for sleep. The patient does report some interval improvement in his breathing quality this morning. However, nursing staff did report that the patient readily gets short of breath with any amount of physical exertion. Objective: The patient's most recent lab work, culture data and imaging studies have all been personally reviewed. Surface echocardiogram revealed normal LV size and function with an ejection fraction of 65%. Pulmonary function testing last completed in June 2018 revealed evidence of an irreversible very severe large airways obstructive ventilatory defect with associated air trapping and reduction in diffusing capacity. Strep and urine Legionella antigens were both negative. Sputum culture is pending. Respiratory viral panel was positive for rhinovirus. General: Alert, Cooperative, No apparent distress, - - Morbidly obese. Unkempt in appearance. HEENT: Atraumatic, PERRLA, Normocephalic Oral: No Gingival or Mucosal Lesions/ Ulcerations Neck: Supple, No Nodes, Trachea Midline Lungs: Diminished, - - Right basilar rales. Cardiovascular: Regular rate, Regular Rhythm, Normal S1, Normal S2, No murmurs Abdomen: Bowel Sounds Present, Soft, Non Tender, Obese Extremities: No cyanosis, Clubbing, Edema Skin: - - Lower extremity venous stasis dermatitis Musculoskeletal: No Tenderness to Palpation of Joints or Extremities Lymphatic: No Cervical, Supraclavicular, or Inguinal Adenopathy Neurological: Neuro grossly intact Psych/Mental Status: Flat Affect Vital Signs Temp Pulse Resp BP Pulse Ox 98.0 F 83 23 H 134/77 H 94 02/14/19 02:00 02/14/19 05:00 02/14/19 05:00 02/14/19 05:00 02/14/19 05:00 Oxygen Flow Rate (L/min) 6 Oxygen Delivery Method Bi-pap Weight: 378 lb 5.012 oz Body Mass Index (BMI) 50.3 Intake and Output for Last 24 Hours 02/12/19 02/13/19 02/14/19 23:59 23:59 23:59 Intake Total 630 / 630 2910.42 / 2970.42 110 / 110 Output Total 1440 / 2090 650 / 650 Balance 630 / 630 1470.42 / 880.42 -540 / -540 Labs (Last 48 Hours) 02/12/19 02/12/19 02/12/19 18:45 18:45 18:45 WBC 8.3 RBC 4.95 Hgb 15.2 Hct 51.0 MCV 103.0 H MCH 30.7 MCHC 29.8 L RDW Std Deviation 52.6 H RDW Coeff of Rea 13.7 Plt Count 154 MPV 9.8 Immature Gran % (Auto) 0.700 Neut % (Auto) 83.7 H Lymph % (Auto) 13.0 L Garland % (Auto) 1.9 Eos % (Auto) 0.2 Baso % (Auto) 0.5 Absolute Neuts (auto) 6.9 Absolute Lymphs (auto) 1.07 Nucleated RBC % 0 ESR PT 13.0 INR 1.0 APTT 27.2 Specimen Type Sample Site pH Bicarbonate Actual POC Total CO2 Base Excess O2 Saturation O2 % ABG pCO2 ABG pO2 Edis Test Respiration Rate O2 Delivery Device EPAP IPAP Blood Gas Notified Whom Blood Gas Notified Time Sodium 139 Potassium 4.1 Chloride 93 L Carbon Dioxide > 45.0 H* Anion Gap TNP BUN 39 H Creatinine 1.33 H Estim Creat Clear Calc 56.62 Est GFR (MDRD) Af Amer 69 Est GFR (MDRD) Non-Af 57 L BUN/Creatinine Ratio 29.3 H Glucose 204 H Hemoglobin A1c Lactic Acid Calcium 9.8 Phosphorus Magnesium Total Bilirubin 0.70 AST 22 ALT 21 Alkaline Phosphatase 100 C-React Prot Ext Range Total Protein 9.1 H Albumin 3.4 Globulin 5.7 H Albumin/Globulin Ratio 0.6 L Triglycerides Cholesterol LDL Cholesterol VLDL Cholesterol HDL Cholesterol Urine Color Urine Clarity Urine pH Ur Specific Lagrange Urine Protein Urine Glucose (UA) Urine Ketones Urine Occult Blood Urine Nitrite Urine Bilirubin Urine Urobilinogen Ur Leukocyte Esterase Urine RBC Urine WBC Ur Squamous Epith Cells Urine Bacteria Hyaline Casts Urine Mucus MRSA (PCR) POC Glucose 02/12/19 02/12/19 02/12/19 18:45 19:50 20:34 WBC RBC Hgb Hct MCV MCH MCHC RDW Std Deviation RDW Coeff of Rea Plt Count MPV Immature Gran % (Auto) Neut % (Auto) Lymph % (Auto) Garland % (Auto) Eos % (Auto) Baso % (Auto) Absolute Neuts (auto) Absolute Lymphs (auto) Nucleated RBC % ESR PT INR APTT Specimen Type ART Sample Site R Radial pH 7.22 L Bicarbonate Actual 50.7 H POC Total CO2 > 50 Base Excess 23 H O2 Saturation 89 L O2 % 50 ABG pCO2 123.5 H* ABG pO2 73 L Edis Test POS Respiration Rate 12 O2 Delivery Device Bi / C PAP EPAP 6 IPAP 12 Blood Gas Notified Whom ED Blood Gas Notified Time 2019 Sodium Potassium Chloride Carbon Dioxide Anion Gap BUN Creatinine Estim Creat Clear Calc Est GFR (MDRD) Af Amer Est GFR (MDRD) Non-Af BUN/Creatinine Ratio Glucose Hemoglobin A1c Lactic Acid 1.5 Calcium Phosphorus Magnesium 2.2 Total Bilirubin AST ALT Alkaline Phosphatase C-React Prot Ext Range Total Protein Albumin Globulin Albumin/Globulin Ratio Triglycerides Cholesterol LDL Cholesterol VLDL Cholesterol HDL Cholesterol Urine Color Urine Clarity Urine pH Ur Specific Lagrange Urine Protein Urine Glucose (UA) Urine Ketones Urine Occult Blood Urine Nitrite Urine Bilirubin Urine Urobilinogen Ur Leukocyte Esterase Urine RBC Urine WBC Ur Squamous Epith Cells Urine Bacteria Hyaline Casts Urine Mucus MRSA (PCR) POC Glucose 02/12/19 02/12/19 02/12/19 21:27 21:45 22:11 WBC RBC Hgb Hct MCV MCH MCHC RDW Std Deviation RDW Coeff of Rea Plt Count MPV Immature Gran % (Auto) Neut % (Auto) Lymph % (Auto) Garland % (Auto) Eos % (Auto) Baso % (Auto) Absolute Neuts (auto) Absolute Lymphs (auto) Nucleated RBC % ESR PT INR APTT Specimen Type ART Sample Site R Radial pH 7.23 L Bicarbonate Actual 49.3 H POC Total CO2 > 50 Base Excess 22 H O2 Saturation 89 L O2 % 50 ABG pCO2 118.2 H* ABG pO2 74 L Edis Test POS Respiration Rate 16 O2 Delivery Device Bi / C PAP EPAP 8 IPAP 18 Blood Gas Notified Whom ED Blood Gas Notified Time 2119 Sodium Potassium Chloride Carbon Dioxide Anion Gap BUN Creatinine Estim Creat Clear Calc Est GFR (MDRD) Af Amer Est GFR (MDRD) Non-Af BUN/Creatinine Ratio Glucose Hemoglobin A1c Lactic Acid Calcium Phosphorus Magnesium Total Bilirubin AST ALT Alkaline Phosphatase C-React Prot Ext Range Total Protein Albumin Globulin Albumin/Globulin Ratio Triglycerides Cholesterol LDL Cholesterol VLDL Cholesterol HDL Cholesterol Urine Color Urine Clarity Urine pH Ur Specific Lagrange Urine Protein Urine Glucose (UA) Urine Ketones Urine Occult Blood Urine Nitrite Urine Bilirubin Urine Urobilinogen Ur Leukocyte Esterase Urine RBC Urine WBC Ur Squamous Epith Cells Urine Bacteria Hyaline Casts Urine Mucus MRSA (PCR) POSITIVE H POC Glucose 184 H 02/13/19 02/13/19 02/13/19 02:15 02:45 02:45 WBC 7.4 RBC 4.80 Hgb 14.9 Hct 49.9 MCV 104.0 H MCH 31.0 MCHC 29.9 L RDW Std Deviation 53.1 H RDW Coeff of Rea 13.7 Plt Count 142 L MPV 10.2 Immature Gran % (Auto) 1.300 H Neut % (Auto) 89.8 H Lymph % (Auto) 7.8 L Garland % (Auto) 0.7 Eos % (Auto) 0.0 Baso % (Auto) 0.4 Absolute Neuts (auto) 6.7 Absolute Lymphs (auto) 0.58 L Nucleated RBC % 0 ESR PT INR APTT Specimen Type Sample Site pH Bicarbonate Actual POC Total CO2 Base Excess O2 Saturation O2 % ABG pCO2 ABG pO2 Edis Test Respiration Rate O2 Delivery Device EPAP IPAP Blood Gas Notified Whom Blood Gas Notified Time Sodium 139 Potassium 4.2 Chloride 93 L Carbon Dioxide 45.0 H Anion Gap 1 L BUN 42 H Creatinine 1.35 H Estim Creat Clear Calc 55.78 Est GFR (MDRD) Af Amer 68 Est GFR (MDRD) Non-Af 56 L BUN/Creatinine Ratio 31.1 H Glucose 182 H Hemoglobin A1c Lactic Acid Calcium 9.4 Phosphorus Magnesium Total Bilirubin AST ALT Alkaline Phosphatase C-React Prot Ext Range Total Protein Albumin Globulin Albumin/Globulin Ratio Triglycerides Cholesterol LDL Cholesterol VLDL Cholesterol HDL Cholesterol Urine Color Yellow Urine Clarity Clear Urine pH 5.0 Ur Specific Lagrange 1.025 Urine Protein 30 H Urine Glucose (UA) Normal Urine Ketones 5 H Urine Occult Blood Negative Urine Nitrite Negative Urine Bilirubin Negative Urine Urobilinogen 1 H Ur Leukocyte Esterase Negative Urine RBC 0 SEEN Urine WBC 0-5 SEEN Ur Squamous Epith Cells 0 SEEN Urine Bacteria 0 SEEN Hyaline Casts 0-5 SEEN Urine Mucus 0 SEEN MRSA (PCR) POC Glucose 02/13/19 02/13/19 02/13/19 02:45 02:45 02:45 WBC RBC Hgb Hct MCV MCH MCHC RDW Std Deviation RDW Coeff of Rea Plt Count MPV Immature Gran % (Auto) Neut % (Auto) Lymph % (Auto) Garland % (Auto) Eos % (Auto) Baso % (Auto) Absolute Neuts (auto) Absolute Lymphs (auto) Nucleated RBC % ESR 112 H PT INR APTT Specimen Type Sample Site pH Bicarbonate Actual POC Total CO2 Base Excess O2 Saturation O2 % ABG pCO2 ABG pO2 Edis Test Respiration Rate O2 Delivery Device EPAP IPAP Blood Gas Notified Whom Blood Gas Notified Time Sodium Potassium Chloride Carbon Dioxide Anion Gap BUN Creatinine Estim Creat Clear Calc Est GFR (MDRD) Af Amer Est GFR (MDRD) Non-Af BUN/Creatinine Ratio Glucose Hemoglobin A1c 6.5 H Lactic Acid Calcium Phosphorus 4.0 Magnesium Total Bilirubin AST ALT Alkaline Phosphatase C-React Prot Ext Range 86.10 H Total Protein Albumin Globulin Albumin/Globulin Ratio Triglycerides 101 Cholesterol 195 LDL Cholesterol 119 VLDL Cholesterol 20 HDL Cholesterol 56 Urine Color Urine Clarity Urine pH Ur Specific [place]range Urine Protein Urine Glucose (UA) Urine Ketones Urine Occult Blood Urine Nitrite Urine Bilirubin Urine Urobilinogen Ur Leukocyte Esterase Urine RBC Urine WBC Ur Squamous Epith Cells Urine Bacteria Hyaline Casts Urine Mucus MRSA (PCR) POC Glucose 02/13/19 02/13/19 02/13/19 08:39 11:57 17:10 WBC RBC Hgb Hct MCV MCH MCHC RDW Std Deviation RDW Coeff of Rea Plt Count MPV Immature Gran % (Auto) Neut % (Auto) Lymph % (Auto) Garland % (Auto) Eos % (Auto) Baso % (Auto) Absolute Neuts (auto) Absolute Lymphs (auto) Nucleated RBC % ESR PT INR APTT Specimen Type Sample Site pH Bicarbonate Actual POC Total CO2 Base Excess O2 Saturation O2 % ABG pCO2 ABG pO2 Edis Test Respiration Rate O2 Delivery Device EPAP IPAP Blood Gas Notified Whom Blood Gas Notified Time Sodium Potassium Chloride Carbon Dioxide Anion Gap BUN Creatinine Estim Creat Clear Calc Est GFR (MDRD) Af Amer Est GFR (MDRD) Non-Af BUN/Creatinine Ratio Glucose Hemoglobin A1c Lactic Acid Calcium Phosphorus Magnesium Total Bilirubin AST ALT Alkaline Phosphatase C-React Prot Ext Range Total Protein Albumin Globulin Albumin/Globulin Ratio Triglycerides Cholesterol LDL Cholesterol VLDL Cholesterol HDL Cholesterol Urine Color Urine Clarity Urine pH Ur Specific [place] Urine Protein Urine Glucose (UA) Urine Ketones Urine Occult Blood Urine Nitrite Urine Bilirubin Urine Urobilinogen Ur Leukocyte Esterase Urine RBC Urine WBC Ur Squamous Epith Cells Urine Bacteria Hyaline Casts Urine Mucus MRSA (PCR) POC Glucose 171 H 241 H 153 H 02/13/19 22:43 WBC RBC Hgb Hct MCV MCH MCHC RDW Std Deviation RDW Coeff of Rea Plt Count MPV Immature Gran % (Auto) Neut % (Auto) Lymph % (Auto) Garland % (Auto) Eos % (Auto) Baso % (Auto) Absolute Neuts (auto) Absolute Lymphs (auto) Nucleated RBC % ESR PT INR APTT Specimen Type Sample Site pH Bicarbonate Actual POC Total CO2 Base Excess O2 Saturation O2 % ABG pCO2 ABG pO2 Edis Test Respiration Rate O2 Delivery Device EPAP IPAP Blood Gas Notified Whom Blood Gas Notified Time Sodium Potassium Chloride Carbon Dioxide Anion Gap BUN Creatinine Estim Creat Clear Calc Est GFR (MDRD) Af Amer Est GFR (MDRD) Non-Af BUN/Creatinine Ratio Glucose Hemoglobin A1c Lactic Acid Calcium Phosphorus Magnesium Total Bilirubin AST ALT Alkaline Phosphatase C-React Prot Ext Range Total Protein Albumin Globulin Albumin/Globulin Ratio Triglycerides Cholesterol LDL Cholesterol VLDL Cholesterol HDL Cholesterol Urine Color Urine Clarity Urine pH Ur Specific [place] Urine Protein Urine Glucose (UA) Urine Ketones Urine Occult Blood Urine Nitrite Urine Bilirubin Urine Urobilinogen Ur Leukocyte Esterase Urine RBC Urine WBC Ur Squamous Epith Cells Urine Bacteria Hyaline Casts Urine Mucus MRSA (PCR) POC Glucose 194 H Microbiology 02/13/19 10:00 Conjunctiva Gram Stain - Final 02/12/19 22:00 Sputum, Expectorated/Coughed Gram Stain - Final 02/12/19 21:10 Mucosa - Nose Respiratory Panel (PCR) - Final Rhinovirus 02/13/19 02:15 Urine Catheter - Catheter Legionella Antigen - Final 02/13/19 02:15 Urine Catheter - Catheter Streptococcus pneumoniae Antigen (M - Final Clinical Impression(s) from Imaging Studies Chest X-Ray 02/12/19 18:58 IMPRESSION: Normal x-ray examination of the chest. Electronically Signed: Nora Moreno MD at 22:13 EDT Tel , Service support , Chest X-Ray 02/13/19 05:55 IMPRESSION: No significant interval change. at 0812 Reported and signed by: Eveline Post MD Electronically Signed: Eveline Post MD at 8:12 EDT Tel , Service support , Medical Necessity - Tobacco Use Smoking Status: Former smoker Tobacco Use: Non-smoker Assessment/Plan All Active Problems (Last Reviewed 03/13/18 @ 12:21 by OLIVER Bashir) Sepsis (Acute) Pneumonia (Acute) JOSEFA (acute kidney injury) (Acute) Acute on chronic respiratory failure (Acute) Acute exacerbation of chronic obstructive airways disease (Acute) RECOMMENDATIONS: 1. Continue AVAPS with naps and nightly. 2. Wean supplemental oxygen to maintain saturations 88 to 92%. 3. Continue scheduled bronchodilators and steroids. 4. Continue antibiotics, pending finalized culture results. 5. Encourage incentive spirometer use and mobilize patient as tolerated. 6. Continue appropriate ICU prophylaxis. 7. Ideally, the patient should be restarted on a triple therapy inhaler regimen at the time of discharge. He will require close outpatient pulmonary follow-up. IMPRESSIONS: 1. Acute on chronic combined respiratory failure likely secondary to end COPD with exacerbation due to rhinovirus infection The patient has known end-stage COPD along with chronic combined respiratory failure. He has been lost to outpatient pulmonary follow-up since March 2018, due to self-reported financial constraints. The patient has responded appropriately to the use of scheduled bronchodilators, IV steroids and antibiotics, along with noninvasive positive pressure ventilatory support. His viral panel was positive for rhinovirus. Recommend continuing empiric antimicrobial therapy, pending finalized culture results. Continue to wean oxygen to maintain saturations 88 to 92%. Continue AVAPS with naps and nightly. I do strongly suspect that the patient has been noncompliant with the use of his outpatient inhaler regimen, again due to financial constraints. The patient will require close follow-up in the pulmonary medicine clinic upon discharge from the hospital. 2. Tobacco dependency in remission/obesity/obstructive sleep apnea/diabetes mellitus/hypertension/hyperlipidemia Complicates care, management, recovery and prognosis. Physical therapy to work with patient. Continue home medications as indicated. Continue sliding scale insulin coverage. The patient wishes to remain full code. This note was generated with Dragon dictation software. It may contain incorrect words, spelling, and punctuation that were not noted in checking the note before signing. Code Visit Inpatient E&M: 74237 Subs Hosp L3
[2019-02-14] MEDS: Nystatin Powder 15gm Bottle 1 APPLIC TOPICAL ×3 (06:25→20:29)
[2019-02-14] MEDS: Tobramycin Sulf 0.3% 5ML OPTH.BTL 2 DRP EACH EYE ×3 (06:25→18:13)
[2019-02-14 07:00] LABS: Bedside Glucose 154 mg/dL (70-110)
[2019-02-14] MEDS: Ipratropium/Albuterol Sulfate 3 ML AMPUL.NEB INHALATION ×4 (07:02→19:08)
[2019-02-14 07:06] LABS: BUN 48 mg/dL (7-18); Calcium,Total 9.5 mg/dL (8.5-10.1); Carbon Dioxide > 45.0 mmol/L (21.0-32.0); Chloride 98 mmol/L (98-107); Creatinine, Serum 0.86 mg/dL (0.70-1.30); EST Glomerular Filtration Rate 94 mL/min (>60); Est Glom Filt Rate - Afr Amer 114 mL/min (>60); Estimated Creatinine Clearance 87.56 ml/min; Glucose 165 mg/dL (74-106); Potassium 4.4 mmol/L (3.5-5.1); Sodium Level 142 mmol/L (136-145)
[2019-02-14 07:13] LABS: Vancomycin, Trough Level 16.6 ug/mL (5.0-15.0)
--- NOTE | 2019-02-14 07:21 | PN_ITS ---
Patient Problems: Active and Suspected Problems (Last Reviewed 03/13/18 @ 12:21 by Jyoti Díaz NP-Davion) Sepsis (Acute) Pneumonia (Acute) JOSEFA (acute kidney injury) (Acute) Subjective: Day #3 Zosyn and vancomycin All events of the past 24 hours been reviewed. He is afebrile and hemodynamically stable. He is currently 88% saturated on a 5 L nasal cannula. Fluid balance on 02/13/2019 was +1470. Overnight he was -1015. Good urine output. All lab was personally reviewed. Serum bicarb is greater than 45 today. BUN is 48 and creatinine is 0.86, down from 1.35 on 02/13/2019. Vanco trough today is 16.6. Blood sugars are adequately controlled. All cultures were reviewed. Respiratory panel was positive for rhinovirus. Sputum Gram stain showed very rare white blood cells and very rare gram-positive cocci. Gram stain of the drainage from the eye showed no white blood cells and no organisms. Blood cultures, sputum culture, culture of right eye drainage and urine culture are pending. Interpretation Summary The study was technically difficult. Diluted definity 3ml given slow IV push to enhance endocardial definition. The estimated ejection fraction is 65 %. No evidence for diastolic dysfunction. Possible mild to moderate mitral stenosis by doppler. Mitral valve is not well visualized by 2d doppler. Doppler suggests moderate aortic stenosis. The aortic valve is not well visualized The study was technically difficult. Still getting very SOB with even minimal exertion. Slept fairly well last night. Denies CP, palpitations. No N/V. No abd pain - Physical Exam General: Alert, Cooperative, - - sitting in the recliner at bedside with BIPAP on HEENT: Atraumatic, PERRLA, EOMI, - - still with some crusting on the eyelids and conjunctival injection - likely viral conjunctivitis Oral: No Gingival or Mucosal Lesions/ Ulcerations, Dry Mucosa Neck: No Nodes, Trachea Midline Lungs: Diminished, Wheezes - rare. Rales in the R base have resolved. Cardiovascular: Regular rate, Regular Rhythm, Normal S1, Normal S2, No Gallop, - - Telemetry reviewed and shows NSR with PAC's. No ventricular ectopy. No AF Abdomen: Bowel Sounds Present, Soft, Non Tender, Obese Extremities: No cyanosis, No edema, No Calf Tenderness Skin: No rashes, No breakdown Musculoskeletal: No Muscle Wasting, Arthritic Changes Neurological: Cranial nerves II-XII grossly intact, Neuro grossly intact Psych/Mental Status: Normal Affect, Appropriate Vital Signs Temp Pulse Resp BP Pulse Ox 98.0 F 82 22 H 129/81 H 88 02/14/19 02:00 02/14/19 07:02 02/14/19 07:02 02/14/19 06:00 02/14/19 07:02 Oxygen Flow Rate (L/min) 5 Oxygen Delivery Method Nasal Cannula Weight: 378 lb 5.012 oz Body Mass Index (BMI) 50.3 Intake and Output for Last 24 Hours 02/12/19 02/13/19 02/14/19 23:59 23:59 23:59 Intake Total 630 / 630 2910.42 / 2970.42 160 / 160 Output Total 1440 / 2090 1175 / 1175 Balance 630 / 630 1470.42 / 880.42 -1015 / -1015 Microbiology Past 72 Hours 02/13/19 10:00 Gram Stain - Final Conjunctiva 02/12/19 22:00 Gram Stain - Final Sputum, Expectorated/Coughed 02/12/19 21:10 Respiratory Panel (PCR) - Final Mucosa - Nose Rhinovirus 02/13/19 02:15 Legionella Antigen - Final Urine Catheter - Catheter 02/13/19 02:15 Streptococcus pneumoniae Antigen (M - Final Urine Catheter - Catheter Laboratory Tests Past 24 Hrs 02/12/19 02/13/19 02/13/19 20:34 02:45 02:45 ESR 112 H Specimen Type ART Sample Site R Radial pH 7.22 L Bicarbonate Actual 50.7 H POC Total CO2 > 50 Base Excess 23 H O2 Saturation 89 L O2 % 50 ABG pCO2 123.5 H* ABG pO2 73 L Edis Test POS Respiration Rate 12 O2 Delivery Device Bi / C PAP EPAP 6 IPAP 12 Blood Gas Notified Whom ED Blood Gas Notified Time 2019 Sodium Potassium Chloride Carbon Dioxide Anion Gap BUN Creatinine Estim Creat Clear Calc Est GFR (MDRD) Af Amer Est GFR (MDRD) Non-Af BUN/Creatinine Ratio Glucose Hemoglobin A1c 6.5 H Calcium Phosphorus C-React Prot Ext Range Triglycerides Cholesterol LDL Cholesterol VLDL Cholesterol HDL Cholesterol Vancomycin Trough 02/13/19 02/14/19 02/14/19 02:45 06:30 06:30 ESR Specimen Type Sample Site pH Bicarbonate Actual POC Total CO2 Base Excess O2 Saturation O2 % ABG pCO2 ABG pO2 Edis Test Respiration Rate O2 Delivery Device EPAP IPAP Blood Gas Notified Whom Blood Gas Notified Time Sodium 142 Potassium 4.4 Chloride 98 Carbon Dioxide > 45.0 H* Anion Gap TNP BUN 48 H Creatinine 0.86 Estim Creat Clear Calc 87.56 Est GFR (MDRD) Af Amer 114 Est GFR (MDRD) Non-Af 94 BUN/Creatinine Ratio 56.0 H Glucose 165 H Hemoglobin A1c Calcium 9.5 Phosphorus 4.0 C-React Prot Ext Range 86.10 H Triglycerides 101 Cholesterol 195 LDL Cholesterol 119 VLDL Cholesterol 20 HDL Cholesterol 56 Vancomycin Trough 16.6 H POC Glucose 02/14/19 02/13/19 02/13/19 06:54 22:43 17:10 POC Glucose 154 H 194 H 153 H 02/13/19 02/13/19 11:57 08:39 POC Glucose 241 H 171 H Medical Necessity - Tobacco Use Smoking Status: Former smoker Tobacco Use: Non-smoker Assessment/Plan All Active Problems (Last Reviewed 03/13/18 @ 12:21 by Jyoti Díaz, KILEY-C) Sepsis (Acute) Pneumonia (Acute) JOSEFA (acute kidney injury) (Acute) Acute on chronic respiratory failure (Acute) Acute exacerbation of chronic obstructive airways disease (Acute) 68-year-old male with a past medical history of end-stage COPD (GOLD class 4) with chronic hypoxic respiratory failure(on 4LPM continuously as OP), super obesity, former tobacco dependence, obstructive sleep apnea, diabetes mellitus type 2, history of CVA, hypertension, hyperlipidemia, non-compliance with medications and anxiety/depression who presented to the emergency department at [facility] on 02/12/2019 complaining of shortness of breath, productive cough and subjective fever/chills that had been occurring for the preceding 3 days. Admitted to ICU with CAP and started on Vanco and Zosyn. PCO2 123 at admission. MRSA nasal screen +. Resp panel + for rhinovirus. Impressions 1. severe sepsis due to CAP with ARF and acute on chronic respiratory failure. VAnco and Zosyn started at admission. The nasal swab is positive for MRSA. Respiratory panel is + for rhinovirus. Continue Vanco and Zosyn until the sputum culture results are available. 2. Acute exacerbation COPD due to PNA 3. Acute on chronic combined respiratory failure due to acute exacerbation of COPD due to CAP-continue aerosolized bronchodilators, guaifenesin, Solu-Medrol and antibiotics. Wears O2 at 4 LPM at home continuously. CO2 at admission 123. Wean O2 as tolerated to maintain the O2 sat between 88 and 92%. 4. Severe, GOLD class stage IV, COPD - has not been following up with pulmonary as OP 5. LATRICIA - on Trilogy at home. Continue AVAPS at night and with naps. 6. Super obesity-on a calorie controlled diet. Weight loss advised. 7. 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 Diabetes mellitus type 2 - well controlled with a HGBA1C of 6.5%. BS's, even on high dose IV solu-medrol, are well controlled. continue current insulin orders 9. Hypertension/hyperlipidemia/anxiety/depression-continue home medications. 10. Abnormal EKG with possible remote inferior wall IA with right bundle branch block and left anterior hemiblock-echo ordered. Suspect pulmonary hypertension. Echocardiogram shows a normal ejection fraction at 65% with possible mild to moderate mitral stenosis by Doppler and possible moderate aortic stenosis Doppler. Study was technically difficult secondary to patient's body habitus. No MM's appreciated on PE. 11. Conjunctivitis - likely viral. Continue Tobrex and await the results of the eye culture. 12. ARF - resolved with hydration 13. DVT prophylaxis with BRIAN hose, SCDs and enoxaparin. Hemodynamically stable and maintaining appropriate oxygen saturation on a 6 LPM NC and BIPAP with 40% FIO2. Wears 4 LPM at home. Will downgrade to PCU status but, maintain in the ICU since he is full code and still at risk for decompensating. Code Visit Inpatient E&M: 31304 Subs Hosp L3
[2019-02-14] MEDS: Insulin Lispro 100 UNIT/ML INSULN.PEN SC ×4 (07:53→20:28)
--- NOTE | 2019-02-14 08:10 | PCM.RX.CS ---
Consult Pharmacy has been consulted to manage selected antiobiotic: Vancomycin Type of Consult: Follow-up Suspected Infection: Sepsis, Pneumonia Prior Doses of Antibiotics Received/Current Regimen: Currently receiving 2000mg IV q12h Labs: Sodium 142 mmol/L (136-145) 02/14/19 06:30 Potassium 4.4 mmol/L (3.5-5.1) 02/14/19 06:30 Chloride 98 mmol/L (98-107) 02/14/19 06:30 Carbon Dioxide > 45.0 mmol/L (21.0-32.0) H* 02/14/19 06:30 Anion Gap TNP 02/14/19 06:30 BUN 48 mg/dL (7-18) H 02/14/19 06:30 Creatinine 0.86 mg/dL (0.70-1.30) 02/14/19 06:30 Est GFR (MDRD) Af Amer 114 mL/min (>60) 02/14/19 06:30 Est GFR (MDRD) Non-Af 94 mL/min (>60) 02/14/19 06:30 BUN/Creatinine Ratio 56.0 RATIO (10-20) H 02/14/19 06:30 Glucose 165 mg/dL (74-106) H 02/14/19 06:30 Vancomycin Trough 16.6 ug/mL (5.0-15.0) H 02/14/19 06:30 Microbiology: Microbiology 02/13/19 10:00 Conjunctiva Gram Stain - Final 02/12/19 22:00 Sputum, Expectorated/Coughed Gram Stain - Final 02/12/19 21:10 Mucosa - Nose Respiratory Panel (PCR) - Final Rhinovirus 02/13/19 02:15 Urine Catheter - Catheter Legionella Antigen - Final 02/13/19 02:15 Urine Catheter - Catheter Streptococcus pneumoniae Antigen (M - Final Weight used for dosin.6 kg Goal Trough: 15-20 mcg/mL Pharmacy Plan for Drug Dosing: The vancomycin trough obtained before this morning's dose came back as 16.6 mg/L (drawn about 12 hours after the previous dose). This is within goal range of 15-20 mg/L so will plan to continue the current dosing regimen of 2000mg IV q12h. Another trough will be scheduled to be drawn in 4 days. Pharmacy Service will continue to monitor and adjust dosing as required. Pharmacy will also continue to monitor renal function,noting that the patient's SCr has improved today (down to 0.86 from 1.35 yesterday). Follow-Up Labs: Trough Vancomycin Labs to be done on [date and time ordered]: 02/18/19 06:30
[2019-02-14] MEDS: guaiFENesin 1,200 MG Tablet 1200 MG PO ×2 (10:46→20:29)
[2019-02-14] MEDS: CHLORHEXIDINE GLUC 2% CLOTH 1 EACH TOWELETTE TOPICAL (10:46)
[2019-02-14] MEDS: Enoxaparin 40 MG/0.4 ML Syringe SC (10:46)
[2019-02-14 13:21] LABS: Bedside Glucose 211 mg/dL (70-110)
[2019-02-14] MEDS: 0.9% NaCl Peripheral Flush Adult/Peds IV (13:51)
[2019-02-14 18:21] LABS: Bedside Glucose 201 mg/dL (70-110)
--- NOTE | 2019-02-14 19:32 | NURSING ---
Pt sitting up in chair on oxygen via NC. PIV alarms downstream occlusion intermittently and pt states I'm ready to stick this in someone's ass. Tubing repositioned and alarm ceased.
[2019-02-14] MEDS: Atorvastatin Calcium 10 MG Tablet PO (20:29)
[2019-02-15] VITALS (36 sets, daily range): BP systolic 107–159; BP diastolic 53–95; PULSE 68–165; RESP 12–30; TEMP 36.3–37.1; O2SAT 88–100
[2019-02-15] MEDS: 0.9% NaCl Peripheral Flush Adult/Peds IV ×4 (00:33→21:00)
[2019-02-15] MEDS: Tobramycin Sulf 0.3% 5ML OPTH.BTL 2 DRP EACH EYE ×4 (00:34→16:45)
[2019-02-15 00:36] LABS: Bedside Glucose 205 mg/dL (70-110)
[2019-02-15 04:48] LABS: Hematocrit 44.8 % (40-54); Hemoglobin 13.6 g/dL (13.0-16.5); Mean Corp Hgb Conc 30.4 g/dL (32-36); Mean Corpuscular Hgb 31.1 pg (27.0-32.0); Mean Corpuscular Volume 102.5 fL (80-94); Mean Platelet Vol. 10.2 fl (6.2-12.0); Platelet Count 129 K/mm3 (150-450); RBC Distribution Width CV 13.3 % (11.6-14.6); RBC Distribution Width SD 50.4 fl (35.1-43.9); Red Blood Count 4.37 M/mm3 (4.6-6.2)
[2019-02-15 05:23] LABS: BUN 37 mg/dL (7-18); BUN/Creat Ratio 54.3 RATIO (10-20); Calcium,Total 9.8 mg/dL (8.5-10.1); Carbon Dioxide > 45.0 mmol/L (21.0-32.0); Chloride 97 mmol/L (98-107); Creatinine, Serum 0.68 mg/dL (0.70-1.30); EST Glomerular Filtration Rate 123 mL/min (>60); Est Glom Filt Rate - Afr Amer 149 mL/min (>60); Glucose 168 mg/dL (74-106); Magnesium 2.2 mg/dL (1.6-2.6); Potassium 5.2 mmol/L (3.5-5.1); Sodium Level 146 mmol/L (136-145)
[2019-02-15] MEDS: Nystatin Powder 15gm Bottle 1 APPLIC TOPICAL ×3 (05:36→21:01)
--- NOTE | 2019-02-15 06:45 | PN_ITS ---
Subjective: Patient did okay overnight. No acute issues were reported. Patient does remain on 4 L nasal cannula oxygen to maintain saturations. Patient reports some subjective improvement in breathing, but overall feels subjectively weak. No nausea, vomiting or diarrhea has been reported. General: Alert, Oriented x3, Cooperative, No apparent distress, Well developed, Well nourished, - - Unkempt HEENT: Atraumatic, PERRLA, EOMI, Normocephalic Oral: Moist Mucosa, No Gingival or Mucosal Lesions/ Ulcerations Neck: Supple, No JVD, No Nodes, Trachea Midline Lungs: No rhonchi, No rales, Diminished, Wheezes Cardiovascular: Regular rate, Regular Rhythm, Normal S1, Normal S2, No murmurs, No rub noted, No Gallop Abdomen: Bowel Sounds Present, Soft, Non Tender, Non-Distended, Obese Extremities: No cyanosis, Capillary Refill Less than 3 Seconds, Clubbing, Edema Skin: No rashes, No breakdown Musculoskeletal: No Tenderness to Palpation of Joints or Extremities Lymphatic: No Cervical, Supraclavicular, or Inguinal Adenopathy Neurological: Cranial nerves II-XII grossly intact, Neuro grossly intact, Motor Exam 5/5 strength throughout Psych/Mental Status: Normal Affect, Appropriate Vital Signs Temp Pulse Resp BP Pulse Ox 36.3 C L 68 23 H 136/75 H 93 02/15/19 03:00 02/15/19 05:00 02/15/19 05:00 02/15/19 03:00 02/15/19 05:00 Oxygen Flow Rate (L/min) 5 Oxygen Delivery Method Bi-pap Weight: 171.6 kg Body Mass Index (BMI) 50.3 Intake and Output for Last 24 Hours 02/13/19 02/14/19 02/15/19 23:59 23:59 23:59 Intake Total 2910.42 / 2970.42 1780 / 1780 50 / 50 Output Total 1440 / 2090 2750 / 2750 600 / 600 Balance 1470.42 / 880.42 -970 / -970 -550 / -550 Labs (Last 48 Hours) 02/12/19 02/12/19 02/13/19 20:34 21:27 02:45 WBC RBC Hgb Hct MCV MCH MCHC RDW Std Deviation RDW Coeff of Rea Plt Count MPV ESR Specimen Type ART ART Sample Site R Radial R Radial pH 7.22 L 7.23 L Bicarbonate Actual 50.7 H 49.3 H POC Total CO2 > 50 > 50 Base Excess 23 H 22 H O2 Saturation 89 L 89 L O2 % 50 50 ABG pCO2 123.5 H* 118.2 H* ABG pO2 73 L 74 L Edis Test POS POS Respiration Rate 12 16 O2 Delivery Device Bi / C PAP Bi / C PAP EPAP 6 8 IPAP 12 18 Blood Gas Notified Whom ED MD ED MD Blood Gas Notified Time 2019 2119 Sodium Potassium Chloride Carbon Dioxide Anion Gap BUN Creatinine Estim Creat Clear Calc Est GFR (MDRD) Af Amer Est GFR (MDRD) Non-Af BUN/Creatinine Ratio Glucose Hemoglobin A1c 6.5 H Calcium Phosphorus Magnesium C-React Prot Ext Range Triglycerides Cholesterol LDL Cholesterol VLDL Cholesterol HDL Cholesterol Vancomycin Trough POC Glucose 02/13/19 02/13/19 02/13/19 02:45 02:45 08:39 WBC RBC Hgb Hct MCV MCH MCHC RDW Std Deviation RDW Coeff of Rea Plt Count MPV ESR 112 H Specimen Type Sample Site pH Bicarbonate Actual POC Total CO2 Base Excess O2 Saturation O2 % ABG pCO2 ABG pO2 Edis Test Respiration Rate O2 Delivery Device EPAP IPAP Blood Gas Notified Whom Blood Gas Notified Time Sodium Potassium Chloride Carbon Dioxide Anion Gap BUN Creatinine Estim Creat Clear Calc Est GFR (MDRD) Af Amer Est GFR (MDRD) Non-Af BUN/Creatinine Ratio Glucose Hemoglobin A1c Calcium Phosphorus 4.0 Magnesium C-React Prot Ext Range 86.10 H Triglycerides 101 Cholesterol 195 LDL Cholesterol 119 VLDL Cholesterol 20 HDL Cholesterol 56 Vancomycin Trough POC Glucose 171 H 02/13/19 02/13/19 02/13/19 11:57 17:10 22:43 WBC RBC Hgb Hct MCV MCH MCHC RDW Std Deviation RDW Coeff of Rea Plt Count MPV ESR Specimen Type Sample Site pH Bicarbonate Actual POC Total CO2 Base Excess O2 Saturation O2 % ABG pCO2 ABG pO2 Edis Test Respiration Rate O2 Delivery Device EPAP IPAP Blood Gas Notified Whom Blood Gas Notified Time Sodium Potassium Chloride Carbon Dioxide Anion Gap BUN Creatinine Estim Creat Clear Calc Est GFR (MDRD) Af Amer Est GFR (MDRD) Non-Af BUN/Creatinine Ratio Glucose Hemoglobin A1c Calcium Phosphorus Magnesium C-React Prot Ext Range Triglycerides Cholesterol LDL Cholesterol VLDL Cholesterol HDL Cholesterol Vancomycin Trough POC Glucose 241 H 153 H 194 H 02/14/19 02/14/19 02/14/19 06:30 06:30 06:54 WBC RBC Hgb Hct MCV MCH MCHC RDW Std Deviation RDW Coeff of Rea Plt Count MPV ESR Specimen Type Sample Site pH Bicarbonate Actual POC Total CO2 Base Excess O2 Saturation O2 % ABG pCO2 ABG pO2 Edis Test Respiration Rate O2 Delivery Device EPAP IPAP Blood Gas Notified Whom Blood Gas Notified Time Sodium 142 Potassium 4.4 Chloride 98 Carbon Dioxide > 45.0 H* Anion Gap TNP BUN 48 H Creatinine 0.86 Estim Creat Clear Calc 87.56 Est GFR (MDRD) Af Amer 114 Est GFR (MDRD) Non-Af 94 BUN/Creatinine Ratio 56.0 H Glucose 165 H Hemoglobin A1c Calcium 9.5 Phosphorus Magnesium C-React Prot Ext Range Triglycerides Cholesterol LDL Cholesterol VLDL Cholesterol HDL Cholesterol Vancomycin Trough 16.6 H POC Glucose 154 H 02/14/19 02/14/19 02/14/19 12:34 18:10 20:26 WBC RBC Hgb Hct MCV MCH MCHC RDW Std Deviation RDW Coeff of Rea Plt Count MPV ESR Specimen Type Sample Site pH Bicarbonate Actual POC Total CO2 Base Excess O2 Saturation O2 % ABG pCO2 ABG pO2 Edis Test Respiration Rate O2 Delivery Device EPAP IPAP Blood Gas Notified Whom Blood Gas Notified Time Sodium Potassium Chloride Carbon Dioxide Anion Gap BUN Creatinine Estim Creat Clear Calc Est GFR (MDRD) Af Amer Est GFR (MDRD) Non-Af BUN/Creatinine Ratio Glucose Hemoglobin A1c Calcium Phosphorus Magnesium C-React Prot Ext Range Triglycerides Cholesterol LDL Cholesterol VLDL Cholesterol HDL Cholesterol Vancomycin Trough POC Glucose 211 H 201 H 205 H 02/15/19 02/15/19 04:15 04:15 WBC 8.0 RBC 4.37 L Hgb 13.6 Hct 44.8 MCV 102.5 H MCH 31.1 MCHC 30.4 L RDW Std Deviation 50.4 H RDW Coeff of Rea 13.3 Plt Count 129 L MPV 10.2 ESR Specimen Type Sample Site pH Bicarbonate Actual POC Total CO2 Base Excess O2 Saturation O2 % ABG pCO2 ABG pO2 Edis Test Respiration Rate O2 Delivery Device EPAP IPAP Blood Gas Notified Whom Blood Gas Notified Time Sodium 146 H Potassium 5.2 H Chloride 97 L Carbon Dioxide > 45.0 H* Anion Gap TNP BUN 37 H Creatinine 0.68 L Estim Creat Clear Calc 75.30 Est GFR (MDRD) Af Amer 149 Est GFR (MDRD) Non-Af 123 BUN/Creatinine Ratio 54.3 H Glucose 168 H Hemoglobin A1c Calcium 9.8 Phosphorus Magnesium 2.2 C-React Prot Ext Range Triglycerides Cholesterol LDL Cholesterol VLDL Cholesterol HDL Cholesterol Vancomycin Trough POC Glucose Microbiology 02/13/19 10:00 Conjunctiva Gram Stain - Final 02/13/19 10:00 Conjunctiva Eye Culture - Preliminary No growth in 24 hours. Final to follow. 02/12/19 22:00 Sputum, Expectorated/Coughed Gram Stain - Final 02/12/19 22:00 Sputum, Expectorated/Coughed Respiratory Culture - Preliminary Appears to be normal respiratory jose francisco. Further studies to follow. 02/13/19 02:15 Urine, Clean Catch Urine Culture - Preliminary Culture exhibits no growth. 02/12/19 21:10 Mucosa - Nose Respiratory Panel (PCR) - Final Rhinovirus 02/13/19 02:15 Urine Catheter - Catheter Legionella Antigen - Final 02/13/19 02:15 Urine Catheter - Catheter Streptococcus pneumoniae Antigen (M - Final Medical Necessity - Tobacco Use Smoking Status: Former smoker Tobacco Use: Non-smoker Assessment/Plan All Active Problems (Last Reviewed 03/13/18 @ 12:21 by Jyoti Díaz NP-C) Sepsis (Acute) Pneumonia (Acute) JOSEFA (acute kidney injury) (Acute) Acute on chronic respiratory failure (Acute) Acute exacerbation of chronic obstructive airways disease (Acute) RECOMMENDATIONS: 1. Continue AVAPS with naps and nightly. 2. Wean supplemental oxygen to maintain saturations 88 to 92%. 3. Continue scheduled bronchodilators and wean steroids. 4. Continue antibiotics, pending finalized culture results. 5. Encourage incentive spirometer use and mobilize patient as tolerated. 6. Continue appropriate ICU prophylaxis. 7. Okay to leave the intensive care unit from my perspective IMPRESSIONS: 1. Acute on chronic combined respiratory failure likely secondary to end COPD with exacerbation due to rhinovirus infection The patient has known end-stage COPD along with chronic combined respiratory failure. He has been lost to outpatient pulmonary follow-up since March 2018, due to self-reported financial constraints. The patient has responded appropriately to the use of scheduled bronchodilators, IV steroids and antibiotics, along with noninvasive positive pressure ventilatory support. Will attempt to decrease IV steroid. Likely transition to p.o. steroids tomorrow. His viral panel was positive for rhinovirus. Recommend continuing empiric antimicrobial therapy, pending finalized culture results (only blood still pending). Continue to wean oxygen to maintain saturations 88 to 92%. Continue AVAPS with naps and nightly. I do strongly suspect that the patient has been noncompliant with the use of his outpatient inhaler regimen, again due to financial constraints. The patient will require close follow-up in the pulmonary medicine clinic upon discharge from the hospital. 2. Tobacco dependency in remission/obesity/obstructive sleep apnea/diabetes mellitus/hypertension/hyperlipidemia Complicates care, management, recovery and prognosis. Physical therapy to work with patient. Continue home medications as indicated. Continue sliding scale insulin coverage. The patient wishes to remain full code. Code Visit Inpatient E&M: 60668 [facility] Hosp L3
[2019-02-15] MEDS: Ipratropium/Albuterol Sulfate 3 ML AMPUL.NEB INHALATION ×4 (07:15→18:39)
--- NOTE | 2019-02-15 07:25 | PCM.PN.HOSP ---
Patient Problems: Active and Suspected Problems (Last Reviewed 03/13/18 @ 12:21 by OLIVER Bashir) Sepsis (Acute) Pneumonia (Acute) JOSEFA (acute kidney injury) (Acute) Subjective: Patient was seen and examined. No other acute events overnight. He feels improved. His coughing is better; productive of whitish sputum. Denies any fever or chills. He is on 5 L of oxygen. He was 4 L of oxygen at home. Vitals/I&O's: Vital Signs Temp Pulse Resp BP Pulse Ox 97.4 F L 87 18 136/75 H 93 02/15/19 03:00 02/15/19 07:16 02/15/19 07:16 02/15/19 03:00 02/15/19 07:16 Oxygen Flow Rate (L/min) 5 Oxygen Delivery Method Nasal Cannula Weight: 171.6 kg Body Mass Index (BMI) 50.3 Intake and Output for Last 24 Hours 02/13/19 02/14/19 02/15/19 23:59 23:59 23:59 Intake Total 2910.42 / 2970.42 1780 / 1780 400 / 400 Output Total 1440 / 2090 2750 / 2750 1150 / 1150 Balance 1470.42 / 880.42 -970 / -970 -750 / -750 General: Alert, Oriented x3, Cooperative, - - In mild respiratory distress with use of accessory muscles of respiration, no conversational dyspnea, super morbidly obese HEENT: Atraumatic, PERRLA, EOMI, Normocephalic Oral: Moist Mucosa Neck: Supple Lungs: Diminished Cardiovascular: Regular rate, Regular Rhythm, Normal S1, Normal S2, No murmurs Abdomen: Bowel Sounds Present, Soft, Non Tender, Distended, Obese Extremities: Edema - Bilateral pedal edema +1 Skin: No rashes, No breakdown Musculoskeletal: No Tenderness to Palpation of Joints or Extremities Lymphatic: No Cervical, Supraclavicular, or Inguinal Adenopathy Neurological: Cranial nerves II-XII grossly intact, Neuro grossly intact Psych/Mental Status: Normal Affect, Appropriate Microbiology Past 72 Hours 02/13/19 10:00 Conjunctiva Gram Stain - Final 02/13/19 10:00 Conjunctiva Eye Culture - Preliminary No growth in 24 hours. Final to follow. 02/12/19 22:00 Sputum, Expectorated/Coughed Gram Stain - Final 02/12/19 22:00 Sputum, Expectorated/Coughed Respiratory Culture - Preliminary Appears to be normal respiratory jose francisco. Further studies to follow. 02/13/19 02:15 Urine, Clean Catch Urine Culture - Preliminary Culture exhibits no growth. 02/12/19 21:10 Mucosa - Nose Respiratory Panel (PCR) - Final Rhinovirus 02/13/19 02:15 Urine Catheter - Catheter Legionella Antigen - Final 02/13/19 02:15 Urine Catheter - Catheter Streptococcus pneumoniae Antigen (M - Final Laboratory Results 02/14/19 12:34: POC Glucose 211 H 02/14/19 18:10: POC Glucose 201 H 02/14/19 20:26: POC Glucose 205 H 02/15/19 04:15: WBC 8.0, RBC 4.37 L, Hgb 13.6, Hct 44.8, MCV 102.5 H, MCH 31.1, MCHC 30.4 L, RDW Std Deviation 50.4 H, RDW Coeff of Rea 13.3, Plt Count 129 L, MPV 10.2 02/15/19 04:15: Sodium 146 H, Potassium 5.2 H, Chloride 97 L, Carbon Dioxide > 45.0 H*, Anion Gap TNP, BUN 37 H, Creatinine 0.68 L, Estim Creat Clear Calc 75.30, Est GFR (MDRD) Af Amer 149, Est GFR (MDRD) Non-Af 123, BUN/Creatinine Ratio 54.3 H, Glucose 168 H, Calcium 9.8, Magnesium 2.2 Current Medications Acetaminophen (Tylenol) 650 mg PO Q6H PRN PRN PRN Reason: Non-cardiac pain (mod-severe) Al Hydroxide/Mg Hydroxide (Mylanta Ii) 15 - 30 ml PO Q4H PRN PRN PRN Reason: INDIGESTION Albuterol Sulfate (Ventolin Aerosols) 2.5 mg INHALATION Q2H PRN PRN PRN Reason: dyspnea, wheezing Albuterol/Ipratropium (Duoneb) 3 ml INHALATION Q4HWA.RT ANG Last Admin: 02/15/19 07:15 Dose: 3 ml Documented by: Atorvastatin Calcium (Lipitor) 10 mg PO QHS ANG Last Admin: 02/14/19 20:29 Dose: 10 mg Documented by: Chlorhexidine Gluconate () 1 each TOPICAL DAILY [facility] Last Admin: 02/14/19 10:46 Dose: 1 each Documented by: Dextrose (D50w Syringe) 0 gm IV X1 PRN; Protocol PRN Reason: Hypoglycemia Enoxaparin Sodium (Lovenox) 40 mg SC DAILY@1000 ANG Last Admin: 02/14/19 10:46 Dose: 40 mg Documented by: Glucagon () 1 mg IM .X1 PRN PRN Reason: Hypoglycemia Guaifenesin (Mucinex) 1,200 mg PO BID [facility] Last Admin: 02/14/19 20:29 Dose: 1,200 mg Documented by: Hydralazine HCl (Apresoline Iv) 10 mg IV Q4H PRN PRN PRN Reason: SBP > 160 Piperacillin Sod/Tazobactam (Sod 3.375 gm/ Sodium Chloride) 50 mls @ 12.5 mls/hr IV Q8 [facility] Last Admin: 02/15/19 05:33 Dose: 12.5 mls/hr Documented by: Insulin Human Lispro (Humalog Kwikpen (Bkc)) 0 unit SC ACHS [facility]; Protocol Last Admin: 02/14/19 20:28 Dose: 2 u Documented by: Magnesium Hydroxide (Milk Of Magnesia) 30 ml PO DAILY PRN PRN Reason: Constipation Methylprednisolone (Solu-Medrol) 40 mg IV Q12 [facility] Nitroglycerin (Nitrostat) 0.4 mg SUBLINGUAL Q5M PRN PRN Reason: CARDIAC/CHEST PAIN Nystatin (Mycostatin Powder) 1 applic TOPICAL TID [facility]; Protocol Last Admin: 02/15/19 05:36 Dose: 1 applicatio Documented by: Ondansetron HCl (Zofran) 4 mg IV Q8H PRN PRN PRN Reason: NAUSEA/VOMITING Sodium Chloride () 10 - 40 ml IV UD PRN PRN Reason: SALINE FLUSH Last Admin: 02/15/19 05:33 Dose: 10 ml Documented by: Tobramycin Sulfate (Tobrex) 2 drop EACH EYE Q6 [facility] Last Admin: 02/15/19 05:37 Dose: 2 drop Documented by: Medical Necessity - Tobacco Use Smoking Status: Former smoker Tobacco Use: Non-smoker Assessment/Plan All Active Problems (Last Reviewed 03/13/18 @ 12:21 by Jyoti Díaz NP-C) Sepsis (Acute) Pneumonia (Acute) JOSEFA (acute kidney injury) (Acute) Acute on chronic respiratory failure (Acute) Acute exacerbation of chronic obstructive airways disease (Acute) 68-year-old male with past medical history of chronic respiratory failure secondary to end-stage COPD, on 4 L home oxygen, hypertension, type II DM, morbid obesity who comes in on 02/12/19 with progressive shortness of breath, productive cough ongoing for 3 days. His management has been that of acute on chronic respiratory failure secondary to CAP/Acute COPD exacerbation. He was managed in the ICU on AVAPS. Blood, urine and sputum cultures, urine streptococcal and Legionella antigen have been negative. His respiratory panel has been positive for rhinovirus. 1. Acute on chronic combined respiratory failure secondary to acute COPD exacerbation secondary to rhinovirus bronchitis/CAP Patient appears improved, almost back to baseline 4 L. Currently on 5 L of oxygen. He has been using the AVAPS at night Plan: We will continue on bronchodilators, wean off oxygen back to baseline, encourage use of incentive spirometer, continue on IV steroids(used by risk and insurance manager) Possible transition to p.o. steroids from tomorrow 2. Sepsis secondary to CAP, secondary to presumed gram-positive organisms/acute rhinovirus bronchitis, improved, no fevers, no leukocytosis, patient was on vancomycin and Zosyn initially, transition to only Zosyn. Will discontinue Zosyn and continue Augmentin for total of 1 week of antibiotics. 3. Type II DM, BS are fairly controlled, home Amaryl, Metformin on hold We will resume Amaryl, hold metformin. Resume metformin from tomorrow Will continue with blood sugar checks and insulin sliding scale. 4. JOSEFA, prerenal, resolved with hydration, back to baseline creatinine, will continue to monitor. 5. Hypernatremia, likely secondary to poor free water intake, will continue to monitor with repeat blood work in a.m. 6. LATRICIA on Trilogy at home, on AVAPS here 7. Super morbid obesity, BMI 52.8, lifestyle modifications recommended 8. Hypertension, controlled, home lisinopril/hydrochlorthiazide on hold on account of admitting JOSEFA, would resume from tomorrow 9. DVT PPx- Lovenox SC/early ambulation Code Visit Inpatient E&M: 93896 Subs Hosp L2
[2019-02-15] MEDS: Insulin Lispro 100 UNIT/ML INSULN.PEN SC ×2 (08:19→21:00)
[2019-02-15] MEDS: guaiFENesin 1,200 MG Tablet 1200 MG PO ×2 (08:20→21:00)
[2019-02-15] MEDS: Enoxaparin 40 MG/0.4 ML Syringe SC (08:20)
[2019-02-15 08:31] LABS: Bedside Glucose 184 mg/dL (70-110)
[2019-02-15] MEDS: Glimepiride 4 MG Tablet PO (10:45)
[2019-02-15 12:10] LABS: Bedside Glucose 109 mg/dL (70-110)
--- NOTE | 2019-02-15 14:38 | CPS ---
Critical CO2 value of 103 Dr. Rodriguez was notified and bipap put back on patient.
[2019-02-15] MEDS: Amox/Clavulanate 875 MG Tablet PO ×2 (15:02→21:00)
--- NOTE | 2019-02-15 15:07 | EKG12_ITS ---
Test Reason : INC HR Blood Pressure : / mmHG Vent. Rate : 154 BPM Atrial Rate : 147 BPM P-R Int : 000 ms QRS Dur : 128 ms QT Int : 314 ms P-R-T Axes : 000 -64 041 degrees QTc Int : 502 ms Atrial fibrillation with rapid ventricular response Right bundle branch block Left anterior fascicular block Bifascicular block Abnormal ECG When compared with ECG of 12-FEB-2019 18:48, MANUAL COMPARISON REQUIRED, DATA IS UNCONFIRMED Confirmed by KAYLYN NICHOLS, CEFERINO ([id number]), metropolitan editor GELACIO DAVIS ([id number]) on 02/16/2019 12:12:35 PM Referred By: June Grant Confirmed By:CEFERINO PATIÑO MD
[2019-02-15] MEDS: Metoprolol Tartrate 5 MG/5 ML Vial IV (15:26)
[2019-02-15 15:40] LABS: Bedside Glucose 115 mg/dL (70-110)
[2019-02-15] MEDS: dilTIAZem 25 MG/5 ML Vial IV BOLUS ×2 (16:35→20:34)
--- NOTE | 2019-02-15 16:58 | CON.PCM_ITS ---
Reason for Consult Date of Consultation: 02/15/19 Reason for Consultation: Evaluation of heart rate History of Present Illness: The patient is a 68 year old M who presented to the emergency department on February 12 with progressive shortness of breath and cough. The patient is currently followed by Dr. Collin Rodriguez in the pulmonary medicine clinic due to a history of GOLD stage IV obstructive lung disease, chronic hypoxemic respiratory failure with a baseline 4 L/min requirement and obstructive sleep apnea. The patient was last seen in the pulmonary medicine office in March 2018. On presentation to the emergency department, the patient was noted to be febrile and tachypneic, but was otherwise hemodynamically stable. Due to the presence of hypoxemia, the patient had to be placed on a BiPAP. Laboratory evaluation revealed no evidence of a leukocytosis. Coagulation profile was within normal limits. Chemistry profile was notable for a chronically elevated serum bicarbonate along with a creatinine of 1.3. Lactate was within normal limits. MRSA screen was positive. Initial plain film chest x-ray revealed no acute infiltrative process. The patient was subsequently started on aerosol treatments, antibiotics and steroids. He was treated in the intensive care unit and stabilized and subsequently transferred to the progressive care unit. He was noted to be in atrial fibrillation with rapid ventricular response rate and also with some respiratory distress. He however denied any chest pain or palpitations. Cardiology was called to further evaluate him. He was noted to be in atrial fibrillation with a rate of 140 bpm. Past Medical History Allergies/Adverse Reactions: Allergies codeine Allergy (Intermediate, Verified 02/12/19 18:44) Rash RASH AND VOMITTING Home Medications: Ambulatory Orders Medication Instructions Recorded Simvastatin [Zocor] 20 mg PO QHS 04/24/17 Diazepam [Valium] 2 mg PO TID PRN #0 04/29/17 Ipratropium/Albuterol Sulfate 3 ml INHALATION Q4H.RT #60 04/29/17 [Duoneb] glimepiride 4 mg tablet 4 mg PO QAM 03/12/18 metformin 500 mg tablet 500 mg PO BID tab 03/12/18 budesonide-formoterol HFA 160 2 puff INHALATION Q12H #10.2 g 01/05/19 mcg-4.5 mcg/actuation aerosol inhaler albuterol sulfate HFA 90 2 puff INHALATION Q4H PRN #18 g 01/25/19 mcg/actuation aerosol inhaler Dulaglutide [Trulicity] 0.5 ml SQ FR 02/12/19 Lisinopril/Hydrochlorothiazide 1 tab PO DAILY 02/12/19 [Lisinopril-Hctz 20-12.5 mg Tab] Meloxicam [Mobic] 15 mg PO DAILY 02/12/19 Past Medical History (Chronic Problems): Chronic Problems (Last Reviewed 03/13/18 @ 12:21 by Jyoti Díaz NP-C) Chronic respiratory failure (Chronic) Stage 4 very severe COPD by GOLD classification (Chronic) Benign essential HTN (Chronic) DM2 (diabetes mellitus, type 2) (Chronic) Morbid obesity (Chronic) Severe chronic obstructive pulmonary disease (Chronic) LATRICIA (obstructive sleep apnea) (Chronic) Chronic hepatitis (Chronic) Hepatitis C, following w/ Dr. Lagos. History of tobacco use (Chronic) Chronic respiratory failure with hypoxia (Chronic) 4L NC baseline. 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 Drugs: None Review of Systems - Review of Systems General: Denies: Fever, Night Sweats, Fatigue HEENT: Denies: Vision Change Cardiovascular: Reports: Shortness of Breath, Shortness of Breath at Rest, Shortness of Breath with Exertion. Denies: Chest Discomfort, Orthopnea, PND, Peripheral Edema, Palpitations, Lightheadedness, Dizziness, Near Syncope, Syncope Respiratory: Denies: Cough, Sputum Production, Hemoptysis Gastrointestinal: Denies: Hematemesis, Hematochezia, Melena Genitourinary: Denies: Dysuria, Hematuria Muscoloskeletal: Denies: Myalgias Skin: Denies: Rash Neurological: Denies: Dizziness Psychiatric: Reports: Anxiety Endocrine: Denies: Unexplained Weight Loss Hematologic/ Lymphatic: Denies: Anemia Subjectve: Middle-aged gentleman in respiratory distress Objective: Vital Signs Temp Pulse Resp BP Pulse Ox 98.1 F 130 H 20 H 140/89 H 94 02/15/19 16:00 02/15/19 16:00 02/15/19 16:00 02/15/19 16:00 02/15/19 16:00 Oxygen Flow Rate (L/min) 4 Oxygen Delivery Method Bi-pap Weight: 378 lb 5.012 oz Body Mass Index (BMI) 50.3 Intake and Output for Last 24 Hours 02/13/19 02/14/19 02/15/19 23:59 23:59 23:59 Intake Total 2910.42 / 2970.42 1780 / 1780 450 / 450 Output Total 1440 / 2090 2750 / 2750 1150 / 1150 Balance 1470.42 / 880.42 -970 / -970 -700 / -700 General: Awake, Alert, Oriented x 3, In Acute Distress, Obese HEENT: PERRL, EOMI, Sclera Non Icteric Neck: Supple, Good ROM, No Lymph Node Enlargement Lungs: Diminished Luiz Bases Cardiovascular: Regular Rhythm, Normal S1, Normal S2, No Murmurs, No Rubs, No Gallops Vascular: No Carotid Bruits, Normal Femoral Pulses, Normal Radial Pulses, Normal Dorsalis Pedal Pulse, Normal Posterior Tibial Pulses Abdomen: Bowel Sounds Present, Soft, Non Tender, No HSM, No Organomegaly Extremities: No Cyanosis, No Clubbing, No edema Musculoskeletal: No Erythema Skin: No Rashes Neurological: No Focal Motor or Sensory Deficit Psych/Mental Status: Appropriate 02/15/19 04:15: WBC 8.0, RBC 4.37 L, Hgb 13.6, Hct 44.8, MCV 102.5 H, MCH 31.1, MCHC 30.4 L, Plt Count 129 L, MPV 10.2 02/15/19 04:15: Sodium 146 H, Potassium 5.2 H, Chloride 97 L, Carbon Dioxide > 45.0 H*, Anion Gap TNP, BUN 37 H, Creatinine 0.68 L, Est GFR (MDRD) Af Amer 149, Est GFR (MDRD) Non-Af 123, BUN/Creatinine Ratio 54.3 H, Glucose 168 H, Calcium 9.8, Magnesium 2.2 Rhythm: EKG: Atrial fibrillation with rapid ventricular response rate. ECHO: Stress Test: Cardiac Cath: PCI: CT Surgery: Holter monitor: EPS: PPM: CXR: Chest CT Scan: Assessment/Plan 1. Atrial fibrillation * Patient is noted to be in atrial fibrillation with rapid ventricular response rate. The above is likely secondary to his respiratory compromise. My recommendation would be for us to treat his underlying rate with intravenous Cardizem for rate control. I would not anticoagulate him at this particular time. * His echocardiogram which was performed demonstrated preserved ejection fraction * 2. Hypertension * Blood pressure appears to be under fair control at this particular time. I would not recommend that we make any other changes. * * Thank you for allowing me to participate in the care of your patient. Please don't hesitate to call if any issues arise
[2019-02-15] MEDS: Digoxin 250 MCG/ML Ampul 500 MCG IV (20:33)
[2019-02-15] MEDS: Enoxaparin 150 MG/ML Syringe SC (21:00)
[2019-02-15] MEDS: Atorvastatin Calcium 10 MG Tablet PO (21:00)
[2019-02-15 21:15] LABS: Bedside Glucose 195 mg/dL (70-110)
--- NOTE | 2019-02-15 23:32 | NURSING ---
heart rhythm on tele monitor appears sinus rhythm, pt refusing EKG, will continue to monitor.
--- NOTE | 2019-02-15 23:48 | NURSING ---
bed exit alarming, pt attempting to get OOB, ripping bipap off. Pt confused, alert to self only, reoriented to place and time, bipap placed back on, pt apologetic and stated I just woke up confused with the mask on, sorry. Bed exit alarm on. Will continue to monitor.
[2019-02-16] VITALS (23 sets, daily range): BP systolic 106–158; BP diastolic 69–106; PULSE 76–144; RESP 14–32; TEMP 36.2–37.1; O2SAT 83–100
--- NOTE | 2019-02-16 01:13 | NURSING ---
bed exit alarming, observed sitting on edge of bed, bipap mask off and O2 sats in the 50's. Refusing bipap or NC, stated, I just want to , I cannot wear that mask, just let me lay here and , I am done. After several minutes, patient agreed to wear 6L NC and O2 came up to the 70's. After approx 10 minutes, agreed to attempt bipap mask again. Will continue to monitor, will discuss with MD.
--- NOTE | 2019-02-16 01:55 | CPS ---
pt keeps taking off bipap, RN aware
--- NOTE | 2019-02-16 02:01 | NURSING ---
Dr. Cristina at bedside discussing code status with pt.
--- NOTE | 2019-02-16 02:09 | PCM.PN.BLA ---
Progress Note Code status discussed with patient . Patient wants bipap off. He does not want CPR; or intubation. Risk of taking bipap off was extensively discussed.
--- NOTE | 2019-02-16 02:17 | NURSING ---
[id number]-per patient request, called daughter, Jessica, and left message. [phone]- per patient request, called ex-, Joshua to update.
[2019-02-16] MEDS: Ipratropium/Albuterol Sulfate 3 ML AMPUL.NEB INHALATION ×3 (02:46→14:46)
[2019-02-16] MEDS: Acetaminophen 325 MG Tablet 650 MG PO (03:40)
--- NOTE | 2019-02-16 03:47 | NURSING ---
complaining of generalized pain, tylenol given, stating I cant catch my breath, is it too late to try the mask again? Educated patient, bipap placed on at 40%. Will cont to monitor.
[2019-02-16] MEDS: Tobramycin Sulf 0.3% 5ML OPTH.BTL 2 DRP EACH EYE ×2 (05:07→11:46)
[2019-02-16] MEDS: Nystatin Powder 15gm Bottle 1 APPLIC TOPICAL (05:08)
[2019-02-16 06:35] LABS: Base Excess 29 mmol/L (-2 to +2); Bicarbonate 54.5 mmol/L (22-26); Blood Gas Specimen Type ART; O2 Delivery Device Nasal Can; PO2 63 mmHG (75-100); SITE R Radial; SO2 87 % (95-99); Time Given 1338; Total Carbon Dioxide > 50 mmol/L; pCO2 103.7 mmHg (35-45); pH 7.33 (7.35-7.45)
[2019-02-16 06:51] LABS: Bedside Glucose 289 mg/dL (70-110)
--- NOTE | 2019-02-16 07:23 | PN.CARD_ITS ---
Subjectve: Patient seen and evaluated. Still in atrial fibrillation. Objective: Vital Signs Temp Pulse Resp BP Pulse Ox 98.2 F 140 H 26 H 153/92 H 94 02/16/19 06:00 02/16/19 06:00 02/16/19 06:00 02/16/19 06:00 02/16/19 06:00 Oxygen Flow Rate (L/min) 6 Oxygen Delivery Method Bi-pap Weight: 375 lb 14.21 oz Body Mass Index (BMI) 50.3 Intake and Output for Last 24 Hours 02/14/19 02/15/19 02/16/19 23:59 23:59 23:59 Intake Total 1780 / 1780 1233.66 / 1240.16 303.59 / 303.59 Output Total 2750 / 2750 1800 / 1800 600 / 600 Balance -970 / -970 -566.34 / -559.84 -296.41 / -296.41 General: Awake, Alert, Oriented x 3 HEENT: PERRL, EOMI, Sclera Non Icteric Neck: Supple, Good ROM, No Lymph Node Enlargement Lungs: Clear to auscultation Cardiovascular: Irregular Rhythm, Normal S1, Normal S2, No Murmurs, No Rubs, No Gallops Vascular: No Carotid Bruits, Normal Femoral Pulses, Normal Radial Pulses, Normal Dorsalis Pedal Pulse, Normal Posterior Tibial Pulses Abdomen: Bowel Sounds Present, Soft, Non Tender, No HSM, No Organomegaly Extremities: No Cyanosis, No Clubbing, No edema Musculoskeletal: No Erythema Skin: No Rashes Lymphatic: No Lymph Node Enlargement Neurological: No Focal Motor or Sensory Deficit Psych/Mental Status: Appropriate 02/15/19 13:40: pH 7.33 L, Bicarbonate Actual 54.5 H, POC Total CO2 > 50, Base Excess 29 H, O2 Saturation 87 L, ABG pCO2 103.7 H*, ABG pO2 63 L, Edis Test NA Rhythm: EKG: ECHO: Stress Test: Cardiac Cath: PCI: CT Surgery: Holter monitor: EPS: PPM: CXR: Chest CT Scan: Medical Necessity - Tobacco Use Smoking Status: Former smoker Tobacco Use: Non-smoker Assessment/Plan 1. Atrial fibrillation * Patient is noted to be in atrial fibrillation with rapid ventricular response rate. The above is likely secondary to his respiratory compromise. My recommendation would be for us to treat his underlying rate with intravenous Cardizem for rate control. I would not anticoagulate him at this particular time. * His echocardiogram which was performed demonstrated preserved ejection fraction * We will add oral beta-luz marina and titrate upwards as appropriate. 2. Hypertension * Blood pressure appears to be under fair control at this particular time. I would not recommend that we make any other changes other than the addition of the beta-luz marina. * * Thank you for allowing me to participate in the care of your patient. Please don't hesitate to call if any issues arise
--- NOTE | 2019-02-16 07:50 | NURSING ---
Called daughter Jessica. Very tearful on the phone because she feels like her dad isnt getting better. Discussed the code status change and was tearful with that. States that she is 7 months and she just wants him to see her only son. Told her to call in if she had any more questions or wanted an update.
[2019-02-16 07:55] LABS: BUN 54 mg/dL (7-18); BUN/Creat Ratio 68.1 RATIO (10-20); Calcium,Total 9.8 mg/dL (8.5-10.1); Carbon Dioxide > 45.0 mmol/L (21.0-32.0); Chloride 93 mmol/L (98-107); Creatinine, Serum 0.79 mg/dL (0.70-1.30); EST Glomerular Filtration Rate 103 mL/min (>60); Est Glom Filt Rate - Afr Amer 125 mL/min (>60); Glucose 276 mg/dL (74-106); Potassium 4.9 mmol/L (3.5-5.1); Sodium Level 144 mmol/L (136-145)
--- NOTE | 2019-02-16 09:26 | PN_ITS ---
Subjective: The patient was seen and examined at the bedside this morning. Events from the last 24 hours have been reviewed. The patient is currently afebrile, hemodynamically stable and maintaining appropriate oxygen saturations on 6 L/min. The patient has been essentially reliant on AVAPS therapy with only short breaks. CODE STATUS was again confirmed to be DNR CCA without intubation. The patient remains on antibiotics, bronchodilators and steroids. Shortly after my evaluation of the patient this morning, he did have to be placed back on AVAPS once again. The patient has essentially been BiPAP dependent now for 24 hours. CODE STATUS has been discussed with the patient both by myself and hospitalist on several occasions. The patient has been wavering with regards to his CODE STATUS. However, during the patient's last encounter with his hospitalist, the patient indicated that he wished to pursue comfort care measures. Therefore, a referral to hospice services has been placed. Objective: The patient's most recent lab work, culture data and imaging studies have all been personally reviewed. Surface echocardiogram revealed normal LV size and function with an ejection fraction of 65%. Pulmonary function testing last completed in June 2018 revealed evidence of an irreversible very severe large airways obstructive ventilatory defect with associated air trapping and reduction in diffusing capacity. Strep and urine Legionella antigens were both negative. Sputum culture has shown no growth. Respiratory viral panel was positive for rhinovirus. - Physical Exam General: Alert, Cooperative, - - Unkempt in appearance HEENT: Atraumatic, PERRLA Oral: No Gingival or Mucosal Lesions/ Ulcerations Neck: Supple, No Nodes, Trachea Midline Lungs: Diminished, Tachypneic, Wheezes Cardiovascular: Normal S1, Normal S2, No murmurs, Irregular Rate, Tachycardic Abdomen: Bowel Sounds Present, Soft, Non Tender, Obese Extremities: No clubbing, No cyanosis, Edema Skin: - - No significant change from previous Musculoskeletal: No Tenderness to Palpation of Joints or Extremities Lymphatic: No Cervical, Supraclavicular, or Inguinal Adenopathy Neurological: Neuro grossly intact Psych/Mental Status: Restless Vital Signs Temp Pulse Resp BP Pulse Ox 98.0 F 144 H 22 H 118/106 H 95 02/16/19 08:00 02/16/19 08:00 02/16/19 08:00 02/16/19 08:00 02/16/19 08:00 Oxygen Flow Rate (L/min) 6 Oxygen Delivery Method Bi-pap Weight: 375 lb 14.21 oz Body Mass Index (BMI) 50.3 Intake and Output for Last 24 Hours 02/14/19 02/15/19 02/16/19 23:59 23:59 23:59 Intake Total 1780 / 1780 1233.66 / 1240.16 346.34 / 346.34 Output Total 2750 / 2750 1800 / 1800 600 / 600 Balance -970 / -970 -566.34 / -559.84 -253.66 / -253.66 Microbiology Past 72 Hours 02/13/19 10:00 Gram Stain - Final Conjunctiva Eye Culture - Final No growth in 48 hours. Anaerobic Culture - Preliminary No growth in 48 hours. 02/12/19 22:00 Gram Stain - Final Sputum, Expectorated/Coughed Respiratory Culture - Final Mixed normal respiratory jose francisco. No Streptococcus pneumoniae, beta-hemolytic Streptococcus or Staphylococcus aureus isolated. 02/13/19 02:15 Urine Culture - Final Urine, Clean Catch Culture exhibits no growth. 02/12/19 18:45 Blood Culture - Preliminary Blood Culture (Wb) - Right Hand No growth in 48 hours. 02/12/19 18:45 Blood Culture - Preliminary Blood Culture (Wb) - Anticubital Left No growth in 48 hours. 02/12/19 21:10 Respiratory Panel (PCR) - Final Mucosa - Nose Rhinovirus Laboratory Tests Past 24 Hrs 02/15/19 02/16/19 13:40 05:45 Specimen Type ART Sample Site R Radial pH 7.33 L Bicarbonate Actual 54.5 H POC Total CO2 > 50 Base Excess 29 H O2 Saturation 87 L ABG pCO2 103.7 H* ABG pO2 63 L Edis Test NA O2 Delivery Device Nasal Can Liter Flow 4.0 Blood Gas Notified Whom HOSP Blood Gas Notified Time 1338 Sodium 144 Potassium 4.9 Chloride 93 L Carbon Dioxide > 45.0 H* Anion Gap TNP BUN 54 H Creatinine 0.79 Estim Creat Clear Calc 75.30 Est GFR (MDRD) Af Amer 125 Est GFR (MDRD) Non-Af 103 BUN/Creatinine Ratio 68.1 H Glucose 276 H Calcium 9.8 POC Glucose 02/16/19 02/15/19 02/15/19 06:45 20:51 15:30 POC Glucose 289 H 195 H 115 H 02/15/19 12:02 POC Glucose 109 Clinical Impression(s) from Imaging Studies Chest X-Ray 02/12/19 18:58 IMPRESSION: Normal x-ray examination of the chest. Electronically Signed: Nora Moreno MD at 22:13 EDT Tel , Service support , Chest X-Ray 02/13/19 05:55 IMPRESSION: No significant interval change. at 0812 Reported and signed by: Eveline Post MD Electronically Signed: Eveline Post MD at 8:12 EDT Tel , Service support , Medical Necessity - Tobacco Use Smoking Status: Former smoker Tobacco Use: Non-smoker Assessment/Plan All Active Problems (Last Reviewed 03/13/18 @ 12:21 by Jyoti Díaz NP-C) Sepsis (Acute) Pneumonia (Acute) JOSEFA (acute kidney injury) (Acute) Acute on chronic respiratory failure (Acute) Acute exacerbation of chronic obstructive airways disease (Acute) RECOMMENDATIONS: 1. Continue current supportive measures with noninvasive positive pressure ventilation, antibiotics, steroids and bronchodilators. 2. Await hospice care referral. 3. Continue rate/rhythm control strategy per cardiology recommendations. 4. Wean FiO2 as tolerated to maintain saturations 88 to 92%. IMPRESSIONS: 1. Acute on chronic combined respiratory failure likely secondary to end COPD with exacerbation due to rhinovirus infection The patient has known end-stage COPD along with chronic combined respiratory failure. He has been lost to outpatient pulmonary follow-up since March 2018, due to self-reported financial constraints. The patient has been treated appropriately with scheduled bronchodilators, steroids and antibiotics. Respiratory viral panel was positive for rhinovirus. Despite appropriate treatment, the patient has continued to struggle from a respiratory perspective. He has essentially been BiPAP dependent. CODE STATUS was discussed with the patient and he is wishing to pursue comfort care measures and have a referral placed to hospice care services. 2. Tobacco dependency in remission/obesity/obstructive sleep apnea/diabetes mellitus/hypertension/hyperlipidemia Complicates care, management, recovery and prognosis. Physical therapy to work with patient. Continue home medications as indicated. Continue sliding scale insulin coverage. This note was generated with [employer] dictation software. It may contain incorrect words, spelling, and punctuation that were not noted in checking the note before signing. Code Visit Inpatient E&M: 49813 Subs Hosp L3
[2019-02-16] MEDS: Metoprolol Tartrate 50 MG Tablet PO (09:37)
[2019-02-16] MEDS: Amox/Clavulanate 875 MG Tablet PO (09:37)
[2019-02-16] MEDS: guaiFENesin 1,200 MG Tablet 1200 MG PO (09:37)
[2019-02-16] MEDS: Glimepiride 4 MG Tablet PO (09:37)
[2019-02-16] MEDS: Enoxaparin 150 MG/ML Syringe SC (09:38)
[2019-02-16] MEDS: Insulin Lispro 100 UNIT/ML INSULN.PEN SC ×2 (09:38→11:46)
--- NOTE | 2019-02-16 10:41 | CASEMGMT ---
This RN PERRI received call from Leanne, pt's passport CM, and she states that [facility] and states that he is awaiting SUSTAINABILITY ANALYST but that it 'will be awhile' before an aide is available. PERRI also states that pt has been set up with a visiting physician and they will see him on 02/25/19. Viviana GAMA aware, voices understanding. Leanne states that she would like to be notified when pt discharge and d/c summ/instructions to be faxed to her and Viviana friend, voices understanding. Juliane BAIRD CM
[2019-02-16 11:16] LABS: Bedside Glucose 239 mg/dL (70-110)
[2019-02-16] MEDS: Morphine 2 MG/ML Syringe 0.5 MG IV (12:35)
--- NOTE | 2019-02-16 14:37 | DCINST_ITS ---
- Discharge Diagnoses Current Active Problems: Current Active and Chronic Problems (Last Reviewed 03/13/18 @ 12:21 by OLIVER Bashir) Sepsis (Acute) Pneumonia (Acute) JOSEFA (acute kidney injury) (Acute) Reason(s) for Visit for Discharge Instructions: Progressive SOB Allergies/Adverse Reactions: Allergies codeine Allergy (Intermediate, Verified 02/12/19 18:44) Rash RASH AND VOMITTING Medications to take at Discharge Simvastatin [Zocor] 20 mg PO QHS 04/24/17 Diazepam [Valium] 2 mg PO TID PRN #0 04/29/17 Ipratropium/Albuterol Sulfate [Duoneb] 3 ml INHALATION Q4H.RT #60 04/29/17 glimepiride 4 mg tablet 4 mg PO QAM 03/12/18 metformin 500 mg tablet 500 mg PO BID tab 03/12/18 budesonide-formoterol HFA 160 mcg-4.5 mcg/actuation aerosol inhaler 2 puff INHALATION Q12H #10.2 g 01/05/19 albuterol sulfate HFA 90 mcg/actuation aerosol inhaler 2 puff INHALATION Q4H PRN #18 g 01/25/19 Dulaglutide [Trulicity] 0.5 ml SQ FR 02/12/19 Lisinopril/Hydrochlorothiazide [Lisinopril-Hctz 20-12.5 mg Tab] 1 tab PO DAILY 02/12/19 Meloxicam [Mobic] 15 mg PO DAILY 02/12/19 Primary Care Physician: Kelvin Yang MD [Primary Care Provider] - Test Results: Test results from this visit will be discussed in further detail at your follow- up appointment, if applicable. Proposed Discharge Date: 02/16/19
--- NOTE | 2019-02-16 14:38 | DS.PCM_ITS ---
Discharge Date and Diagnosis Date of Admission: 02/12/19 Date of Discharge: 02/16/19 - Primary Discharge Diagnosis Active and Suspected Problems (Last Reviewed 03/13/18 @ 12:21 by Jyoti Díaz NP-Davion) 1. Acute on chronic combined respiratory failure 2. Acute COPD exacerbation secondary to rhinovirus bronchitis/CAP 3. Sepsis secondary to CAP, secondary to presumed gram-positive organisms/acute rhinovirus bronchitis 4. A. fib with RVR - Secondary Discharge Diagnosis Chronic Problems (Last Reviewed 03/13/18 @ 12:21 by Jyoti Díaz NP-C) Chronic respiratory failure (Chronic) Stage 4 very severe COPD by GOLD classification (Chronic) Benign essential HTN (Chronic) DM2 (diabetes mellitus, type 2) (Chronic) Morbid obesity (Chronic) Severe chronic obstructive pulmonary disease (Chronic) LATRICIA (obstructive sleep apnea) (Chronic) Chronic hepatitis (Chronic) Hepatitis C, following w/ Dr. Lagos. History of tobacco use (Chronic) Chronic respiratory failure with hypoxia (Chronic) 4L NC baseline. Anxiety (Chronic) History of stroke (Chronic) Hospital Course and Treatment Imaging Results: Clinical Impression(s) from Imaging Studies Chest X-Ray 02/12/19 18:58 IMPRESSION: Normal x-ray examination of the chest. Electronically Signed: Nora Moreno MD at 22:13 EDT Tel , Service support , Chest X-Ray 02/13/19 05:55 IMPRESSION: No significant interval change. at 0812 Reported and signed by: Eveline Post MD Electronically Signed: Eveline Post MD at 8:12 EDT Tel , Service support , Learning Strategist Operations: None Procedures: None Summary of Care Provided: 68-year-old male with past medical history of chronic respiratory failure secondary to end-stage COPD, on 4 L home oxygen, hypertension, type II DM, morbid obesity who comes in on 02/12/19 with progressive shortness of breath, productive cough ongoing for 3 days. His management has been that of acute on chronic respiratory failure secondary to CAP/Acute COPD exacerbation. He was managed in the ICU on AVAPS. Blood, urine and sputum cultures, urine streptococcal and Legionella antigen have been negative. His respiratory panel has been positive for rhinovirus. Patient was treated with breathing treatment, IV antibiotics, IV steroids. He continued to require AVAPs with a transient improvement in oxygen saturation to 4L oxygen and subsequent transfer to PCU. In PCU, patient required continuous use of AVAPS. He said he could not do this anymore, refused to wear his Bipap/AVAPS. His code status was made DNR-CCA. He later the next morning, changed his mind as he was persistently dyspneic with minimal exertion. He had gone into A. fib with RVR and started on cardizem drip as well as metoprolol. Cardiology was consulted. Patient later on the day of discharge, refused to wear his AVAPS. Clarified code status; he wanted to have Hospice consulted. Hospice accepted him to inpatient hospice facility. I had a family meeting with his patient, children and ex- in attendance. Patient appeared calm and at peace with choice of Hospice. His code status was made DNR-CCA. I spent 30 mins discussing code status and goals of care in detail with patient. He choose to be DNR-CCA after explaining the various types of CODE STATUSES including full code. Subjective: On the day of discharge, Objective: General: Alert, Oriented x3, Cooperative, - - In moderate respiratory distress with use of accessory muscles of respiration, no conversational dyspnea, super morbidly obese HEENT: Atraumatic, PERRLA, EOMI, Normocephalic Oral: Moist Mucosa Neck: Supple Lungs: Diminished Cardiovascular: Regular rate, Regular Rhythm, Normal S1, Normal S2, No murmurs Abdomen: Bowel Sounds Present, Soft, Non Tender, Distended, Obese Extremities: Edema - Bilateral pedal edema +1 Skin: No rashes, No breakdown Musculoskeletal: No Tenderness to Palpation of Joints or Extremities Lymphatic: No Cervical, Supraclavicular, or Inguinal Adenopathy Neurological: Cranial nerves II-XII grossly intact, Neuro grossly intact Psych/Mental Status: Normal Affect, Appropriate - Physical Exam Vital Signs Temp Pulse Resp BP Pulse Ox 97.9 F 137 H 29 H 106/69 97 02/16/19 11:00 02/16/19 11:18 02/16/19 11:18 02/16/19 11:00 02/16/19 11:18 Oxygen Flow Rate (L/min) 7 Oxygen Delivery Method Nasal Cannula Weight: 170.5 kg Body Mass Index (BMI) 50.3 Intake and Output for Last 24 Hours 02/14/19 02/15/19 02/16/19 23:59 23:59 23:59 Intake Total 1780 / 1780 1233.66 / 1240.16 686.34 / 686.34 Output Total 2750 / 2750 1800 / 1800 1200 / 1200 Balance -970 / -970 -566.34 / -559.84 -513.66 / -513.66 Microbiology Past 72 Hours 02/13/19 10:00 Gram Stain - Final Conjunctiva Eye Culture - Final No growth in 48 hours. Anaerobic Culture - Preliminary No growth in 48 hours. 02/12/19 22:00 Gram Stain - Final Sputum, Expectorated/Coughed Respiratory Culture - Final Mixed normal respiratory jose francisco. No Streptococcus pneumoniae, beta-hemolytic Streptococcus or Staphylococcus aureus isolated. 02/13/19 02:15 Urine Culture - Final Urine, Clean Catch Culture exhibits no growth. 02/12/19 18:45 Blood Culture - Preliminary Blood Culture (Wb) - Right Hand No growth in 48 hours. 02/12/19 18:45 Blood Culture - Preliminary Blood Culture (Wb) - Anticubital Left No growth in 48 hours. 02/12/19 21:10 Respiratory Panel (PCR) - Final Mucosa - Nose Rhinovirus Laboratory Tests Past 24 Hrs 02/15/19 02/16/19 13:40 05:45 Specimen Type ART Sample Site R Radial pH 7.33 L Bicarbonate Actual 54.5 H POC Total CO2 > 50 Base Excess 29 H O2 Saturation 87 L ABG pCO2 103.7 H* ABG pO2 63 L Edis Test NA O2 Delivery Device Nasal Can Liter Flow 4.0 Blood Gas Notified Whom HOSP Blood Gas Notified Time 1338 Sodium 144 Potassium 4.9 Chloride 93 L Carbon Dioxide > 45.0 H* Anion Gap TNP BUN 54 H Creatinine 0.79 Estim Creat Clear Calc 75.30 Est GFR (MDRD) Af Amer 125 Est GFR (MDRD) Non-Af 103 BUN/Creatinine Ratio 68.1 H Glucose 276 H Calcium 9.8 POC Glucose 02/16/19 02/16/19 02/15/19 11:05 06:45 20:51 POC Glucose 239 H 289 H 195 H 02/15/19 15:30 POC Glucose 115 H Discharge Diet: No Restrictions Home Medications: Medications to take at Discharge Simvastatin [Zocor] 20 mg PO QHS 04/24/17 Diazepam [Valium] 2 mg PO TID PRN #0 04/29/17 Ipratropium/Albuterol Sulfate [Duoneb] 3 ml INHALATION Q4H.RT #60 04/29/17 glimepiride 4 mg tablet 4 mg PO QAM 03/12/18 metformin 500 mg tablet 500 mg PO BID tab 03/12/18 budesonide-formoterol HFA 160 mcg-4.5 mcg/actuation aerosol inhaler 2 puff INHALATION Q12H #10.2 g 01/05/19 albuterol sulfate HFA 90 mcg/actuation aerosol inhaler 2 puff INHALATION Q4H PRN #18 g 01/25/19 Dulaglutide [Trulicity] 0.5 ml SQ FR 02/12/19 Lisinopril/Hydrochlorothiazide [Lisinopril-Hctz 20-12.5 mg Tab] 1 tab PO DAILY 02/12/19 Meloxicam [Mobic] 15 mg PO DAILY 02/12/19 Primary Care Physician: Kelvin Yang MD [Primary Care Provider] - Disposition: Hospice Medical Facility Minutes spent on discharge:: 65 - In multiple family meetings, discussing goals of care Patient Condition:: Poor Medical Necessity - Tobacco Use Smoking Status: Former smoker Tobacco Use: Non-smoker Meaningful Use Info Meaningful Use Diagnoses (Choose all that apply): None applicable Code Visit Inpatient E&M: 53900 Disch Hosp Procedures: 34578 Advncd Care Plan 30 Min
[2019-02-16] MEDS: 0.9% NaCl Peripheral Flush Adult/Peds IV (14:43)
[2019-02-16] MEDS: Morphine 2 MG/ML Syringe 1 MG IV (14:51)
--- NOTE | 2019-02-16 15:13 | NURSING ---
CALL[facility] REPORT TO DAVID AT [facility]. NO NEEDS AT THIS TIME.
[2019-02-17 17:01] LABS: Base Excess 26 mmol/L (-2 to +2); Bicarbonate 51.4 mmol/L (22-26); Blood Gas Specimen Type ART; EPAP 12; FI02 40; IPAP 25; PO2 121 mmHG (75-100); RR 12; SITE L Radial; SO2 98 % (95-99); Time Given 1130; Total Carbon Dioxide > 50 mmol/L; pCO2 93.1 mmHg (35-45); pH 7.35 (7.35-7.45)
--- NOTE | 2019-02-18 08:22 | CPS ---
02/16/19 11:29, critical values verbally spoken to dr. hamilton.
== END 2019-02-16 18:30 | disposition home or self-care (01) | DRG 871 ==
LOC: ED 19:21 → ICU 21:26 → PCU 02-15 13:50
PROVIDERS: Internal Medicine; Admitting Provider Family Medicine; Emergency Provider Emergency Medicine; Family Provider Family Medicine; PCP Family Medicine; Referring Provider Family Medicine; Visit Provider Internal Medicine
DX: A41.89 Other specified sepsis (principal); J96.21 Acute and chronic respiratory failure with hypoxia; J96.22 Acute and chronic respiratory failure with hypercapnia; J18.9 Pneumonia, unspecified organism; J44.0 Chronic obstructive pulmonary disease with (acute) lower respiratory infection; N17.9 Acute kidney failure, unspecified; J44.1 Chronic obstructive pulmonary disease with (acute) exacerbation; Z68.43 Body mass index [BMI] 50.0-59.9, adult; I45.2 Bifascicular block; J20.6 Acute bronchitis due to rhinovirus; E66.01 Morbid (severe) obesity due to excess calories; E78.5 Hyperlipidemia, unspecified; E11.9 Type 2 diabetes mellitus without complications; Z99.81 Dependence on supplemental oxygen; G47.33 Obstructive sleep apnea (adult) (pediatric); I48.91 Unspecified atrial fibrillation; I10 Essential (primary) hypertension; Z86.73 Personal history of transient ischemic attack (TIA), and cerebral infarction without residual deficits; Z79.84 Long term (current) use of oral hypoglycemic drugs; Z87.891 Personal history of nicotine dependence; Z66 Do not resuscitate
CPT/HCPCS: 36415; 36600; 71045; 80048; 80053; 80061; 80202; 81001; 82803; 82962; 83036; 83605; 83735; 84100; 85025; 85027; 85610; 85652; 85730; 86140; 87040; 87070; 87075; 87086; 87205; 87449; 87633; 87641; 93005; 93306; 94002; 94003; 94640; 94667; 94668; 97163; 97166; 97530; 97535; 97802; 99285; J7030; J7040; Q9957; A4216; C8929